=== PATIENT | female | born 1995 | race Two or more races ===

== ENCOUNTER 2024-01-27 00:03 | Emergency (ER) | payer MEDICAID, SELFPAY ==
[2024-01-27 00:03] VITALS: BP 116/78; PULSE 80; RESP 16; TEMP 36.7; O2SAT 99
[2024-01-27 00:04] VITALS: BMI 31.0
[2024-01-27 00:31] VITALS: PULSE 85; RESP 19; O2SAT 98
[2024-01-27 00:42] VITALS: BP 116/84; PULSE 75; RESP 16; O2SAT 99
--- NOTE | 2024-01-27 00:48 | PD.EDCHEST ---
ED Chest Pain RME/HPI General Chief Complaint: Chest Pain Stated Complaint: CHEST PAIN Time Seen by Provider: 01/27/24 00:49 Arrival date/time: 01/27/24 00:03 RME / HPI RME / HPI narrative: Dr. Sevilla's Main ED Evaluation: 28yo female A1 BIBA from home presents to the ED for a chief complaint of chest pressure x 2300. Patient states she was laying in bed awake when she developed sudden chest pressure, initially rating the pain a 9 out of 10 in severity. She reports having associated shortness of breath. She denies any cough, hemoptysis, vomiting, sweating, fever, chills, abdominal pain, UTI symptoms, blood clots, leg pain, headache or any other associated symptoms. Denies any tobacco, alcohol or illicit drug use. No known allergies. Patient endorses having a history of connective tissue disorder/lupus. She has not taken her medications for that disorder since she was . She had a miscarriage on 01/09/24. She is not breast-feeding. Denies any previous c-sections. PCP: [facility] Related Data Home Medications ?Medication ?Instructions ?Recorded ?Confirmed prenat.vits,meche,[id number]-aeske 1 tab PO QDAY 01/23/23 01/23/23 Allergies Allergy/AdvReac Type Severity Reaction Status Date / Time No Known Allergies Allergy Verified 01/23/23 19:18 Review of Systems Review of Systems Systems Reviewed: All systems reviewed, normal except as documented Narrative Review of Systems: Gen: No fever, no chills, no weight loss EYES: No discharge, no visual changes, no pain HEENT: No ear pain, no congestion, no sore throat PULM: + shortness of breath, no cough, no congestion CV: + chest pain, no dyspnea on exertion, no palpitations GI: No nausea, no vomiting, no diarrhea, no pain, no constipation : No frequency, no urgency, no dysuria Musc/skel: No joint pain, no back pain Skin: No rash. Warm and dry. Psyc: No hallucinations, no depression Heme/Lymph: No easy bleeding or bruising tendencies Neuro: No weakness, no headache Past Medical History Past Medical History NEUROLOGIC: Negative Neurological Disorders or Seizures CARDIAC: Negative Cardiac Disorders or Congestive Heart Failure RESPIRATORY: Negative Chronic Obstructive Pulmonary Disease (COPD) or Asthma GASTROINTESTINAL: Negative Gastrointestinal Disorders GENITOURINARY: Negative Genitourinary Disorders or Renal Disease MUSCULOSKELETAL: Positive Musculoskeletal Disorders ENDOCRINE: Negative Endocrine Disorders, Diabetes Mellitus Type 1 or Diabetes Mellitus Type 2 HEMATOLOGIC: Negative Blood Disorders, Anemia or Sickle Cell Disease PSYCHO/SOCIAL: Positive Depression and Anxiety OTHER HISTORY: Positive Autoimmune Disease; Negative Blood Transfusions Family History FAMILY HISTORY: Positive Family Cardiac Disorders and Family Cancer; Negative Family Psychiatric Problems, Family Respiratory Disorders, Family Gastrointestinal Problems, Family Surgery or Family Anesthesia Reaction Surgical History SURGICAL: Negative Section Social History SMOKING STATUS: Never smoker SUBSTANCE USE: does not use ED Exam Narrative Physical exam: GEN. APPEARANCE: Patient is alert awake oriented x3 under no distress, laying down comfortably at 30-45?; does not look ill/ toxic. Patient has good eye contact. Patient is cooperative. VITALS: All vitals were reviewed and the pulse ox is 99% on room air, which is normal according to my interpretation. HEENT: Normocephalic, atraumatic and nontender. Pupils are equal and reactive to light and accommodation. Oral mucosa are moist. NECK: Supple, nontender, no meningismus, no JVD. CHEST: Nontender on palpation, no deformity and no crepitus. CARDIOVASCULAR: Heart regular rhythm no murmur or gallop rub or extra beats; not tachycardic. LUNGS: Clear to auscultation bilaterally with symmetrical chest rise. No laboring tachypnea or wheezing. No intercostal subcostal retraction. No rales and no rhonchi. ABDOMEN: Soft, flat, nontender at all, no guarding or rebound tenderness. There are no abnormal masses palpated. No pulsatile masses or bruits. Active and normal bowel sounds. GENITALIA: Not examined. RECTAL EXAM: Not done. EXTREMITIES: Nontender. No edema. No cyanosis. Patient is able to move all 4 extremities well. SKIN: Warm and dry, no rashes noted. MUSCULOSKELETAL: No lumbar or midline bony tenderness. There is no CVA tenderness. No paraspinal muscle spasm or tenderness. NEURO: Cranial nerves II through XII grossly intact. There is no focalization. GCS is 15. PSYCHIATRIC: Patient is in normal mood and affect, cooperative. LYMPHATICS: No major lymphadenopathy noted. Course Course Course Narrative: CXR is ordered for determining the etiology of chest pain. Quality Measures none Orders Category Date Time Status EKG (ED ONLY) *Do not use* NOW Care 01/27/24 00:39 Completed EKG (ED Only) Stat Exams 01/27/24 00:39 Ordered XR chest 1V portable Stat Exams 01/27/24 01:07 Taken B-Type Natriuretic Peptide Stat Lab 01/27/24 01:23 Completed CBC Stat Lab 01/27/24 01:23 Completed Comprehensive Metabolic Panel Stat Lab 01/27/24 01:23 Completed D-Dimer Stat Lab 01/27/24 01:23 Completed Troponin I Stat Lab 01/27/24 01:23 Completed Vital Signs Vital signs: Vital Signs Temperature 98.1 F 01/27/24 00:03 Pulse Rate 80 01/27/24 00:03 Respiratory Rate 16 01/27/24 00:03 Blood Pressure 116/78 01/27/24 00:03 Pulse Oximetry (%) 99 01/27/24 00:03 Oxygen Delivery Method Room Air 01/27/24 00:03 Procedures -ED EKG Interpretation #1: Date of EK01/27/24 Rate: 71 Interpretation: Interpreted by me EKG Impression: Normal sinus rhythm, No acute ST-T changes, No ectopy, No ischemic changes, Normal QRS, Normal intervals and Normal axis Chest Pain MDM Narrative MDM Narrative:: Scribe Attestation: 01/27/24 Hallie Dumas am scribing for and in the presence of Dr. Sevilla. Patient was brought in by ambulance from home due to chest pressure since 11 PM tonight. Patient called 911 because she started experiencing chest pressure at 11 PM while she was awake in bed at home. She was not upset and there was no problems at the time she was just taking care of her 8-month-old baby. She got short of breath but no coughing or hemoptysis. She denies any headache or nausea vomiting or sweating or fever chills. She denies any abdominal pain or UTI symptoms. She denies any leg swelling or leg pain. She denies any loss of consciousness. Patient had a miscarriage on 01/09/2024 and she is 6 para 5; she has 5 children at home and no . 3 years ago she had a similar episode of chest pressure and they told her that she had lupus and connective tissue disease. She never had DVTs in the past. Patient does not look ill or toxic and she is hemodynamically stable. She is not tachycardic nor tachypneic and she is satting at 99% on room air. I will get a basic cardiac workup and a D-dimer on her. At 2:45 AM, all her lab work came back negative including her D-dimer. Patient will be discharged home. Provider Notation: Although this document has been carefully reviewed, there may still be some phonetic and other typographical errors. These errors are purely grammatical due to imperfections in the software program and should not be construed in any way to compromise the substance of the patient's medical care during this visit. Patient data External records reviewed:: [facility] previous records (Per chart review, patient was seen here on 01/07/24 for a threatened .) Clinical information provided by:: patient Social determinants that could affect healthcare access:: none Patient has the following chronic illnesses:: none How is presenting disease/condition affected by chronic disease/condition?: no chronic disease Evaluation data The following diagnostics were reviewed and interpreted by me:: lab results and EKG tracing(s) Lab and/or radiology exams considered but not ordered:: none Interpretation Summary: See above under MDM narrative. Medications / Prescriptions Medications or Prescriptions considered but not ordered:: none Medication administrations:: See above, if any Consultations Consultation(s) initiated? (list below): No Diagnosis Chest Pain Differential Diagnosis: other (CAD, PE, pneumonia, CHF) Most likely diagnosis given after review of the tests above:: see below Admission Indicated Admission indicated?: not indicated Admission Request Was there a request for admission?: No Disposition Plan Disposition Plan: Discharge Discharge Attestation Discharge Attestation: The patient and all family members were given an opportunity to ask questions and understood the discharge instructions. Discharge instructions specifically effects, indications for sooner follow up or return to the emergency department, and the expected course of current diagnosis. Patient condition: Stable Discharge Plan Plan Patient Disposition: HOME (Self Care) Prescriptions/Referrals Prescriptions/Med Rec: No Action Vitamin Tablet 1 tab PO QDAY Referrals: Olvin Gan PA-C [Primary Care Provider] - 01/30/24 10:00 am Problem List Clinical Impression: Chest pain, non-cardiac Patient/Caregiver Discharge Instructions Education Materials: ED Chest Pain, Noncardiac Additional Instructions: Follow-up with your clinic on Tuesday for recheck or return here if worse. Print Language: [place] Stand Alone Forms: [employer]anna Award Info., Patient Portal Info Letter
--- NOTE | 2024-01-27 00:51 | PC.NURSE ---
Dr. Sevilla at the bedside.
--- NOTE | 2024-01-27 01:07 | XR_ITS ---
Examination: AP chest single view Technique one AP portable upright chest single view Exam date and time: January 27, 2024 0118 hours INDICATION: Shortness of breath chest pain today FINDINGS: Normal heart size Lungs are clear. The osseous structures are intact IMPRESSION: No active disease
[2024-01-27 01:33] LABS: Basophils % (Auto) 0 % (0-2.5); Eosinophils # (Auto) 0.1 Thou/mm3 (0.0-0.5); Eosinophils % (Auto) 1 % (0-10); Hematocrit 33.8 % (36.0-46.0); Hemoglobin 11.2 g/dL (12.0-16.0); Immature Granulocytes % (Auto) 0 % (0-0); Immature Granulocytes Auto 0.01 Thou/mm3 (0.00-0.00); Lymphocytes # (Auto) 2.6 Thou/mm3 (1.0-4.8); Lymphocytes % (Auto) 32 % (10-50); Mean Corpuscular HGB Conc 33.1 g/dl (31.0-37.0); Mean Corpuscular Hemoglobin 27.2 pg (25.0-35.0); Mean Corpuscular Volume 82 fL (80-100); Monocytes # (Auto) 0.5 Thou/mm3 (0.0-0.8); Monocytes % (Auto) 6 % (0-12); Neutrophils # (Auto) 4.8 Thou/mm3 (1.8-7.7); Neutrophils % (Auto) 60 % (37-80); Nucleated Red Blood Cell % 0 /100 WBC (0); Platelet Count 348 Thou/mm3 (140-440); RDW Standard Deviation 39.6 fL (36.4-46.3); Red Blood Count 4.12 Miln/mm3 (4.00-5.20)
[2024-01-27 01:34] VITALS: BP 115/81; PULSE 77; RESP 16; O2SAT 100
[2024-01-27 01:54] LABS: B-Type Natriuretic Peptide 25 pg/mL (0-100)
[2024-01-27 01:56] LABS: Alanine Aminotransferase 34 U/L (10-49); Albumin, Serum 4.3 gm/dL (3.5-5.0); Albumin/Globulin Ratio 1.6 (1.2-2.2); Alkaline Phosphatase 86 U/L (46-116); Anion Gap 7 (7-16); Aspartate Amino Transferase 16 U/L (0-34); BUN/Creatinine Ratio 11 Ratio (12-20); Bilirubin,Total 0.2 mg/dL (0.3-1.2); Blood Urea Nitrogen 8 mg/dL (9-23); Calcium 9.4 mg/dL (8.3-10.6); Calcium (Corrected) 9.4 mg/dL (8.5-10.1); Carbon Dioxide 24.9 mMol/L (20.0-31.0); Chloride 108 mMol/L (98-107); Creatinine (Component) 0.7 mg/dL (0.6-1.3); Estimated Creatinine Clearance 137.7 mL/min (>60); Globulin 2.7 gm/dL (2.3-3.5); Glucose 108 mg/dL (74-106); Osmolality,Calculated 278 (275-295); Potassium 3.8 mMol/L (3.4-5.1); Sodium 140 mMol/L (136-145); Troponin I < 0.002 ng/mL (0.0-0.045); eGFR > 60 See Note
[2024-01-27 02:03] LABS: D-Dimer < 250 ng/mL (<600)
[2024-01-27 02:51] VITALS: BP 112/74; PULSE 75; RESP 19; TEMP 36.7; O2SAT 99
== END 2024-01-27 02:51 | disposition home or self-care (01) ==
PROVIDERS: Emergency Provider Emergency Medicine; PCP Physician Assistant
DX: R07.89 Other chest pain (principal); R06.02 Shortness of breath
CPT/HCPCS: 36415; 71045; 80053; 83880; 84484; 85025; 85379; 93005; 99283

== ENCOUNTER 2024-10-29 00:14 | Observation (INO) | payer MEDICAID, SELFPAY ==
[2024-10-29] VITALS (43 sets, daily range): BP systolic 100–129; BP diastolic 58–85; PULSE 84–131; RESP 18–99; TEMP 37.1; O2SAT 85–100; BMI 31.8
--- NOTE | 2024-10-29 00:47 | XR_ITS ---
Examination: Complete OB ultrasound greater than 14 weeks Date and time of exam: October 29, 2024, 0223 hours INDICATIONS: Patient fell 4 hours ago with injury to the pelvis followed by pelvic contractions. Findings: Viable intrauterine single fetus with single amniotic sac presentation cephalic Cardiac motion 1 8 BPM Placenta posterior 3 no abruption Umbilical cord insertion seen Amniotic fluid index 9.0 cm spine maternal left Cervix 3.1 cm Ovaries obscured by bowel gas. Composite estimated gestational age based on BPD, head circumference, abdominal circumference, femur length is 33 weeks 0 days Estimated weight 2059 g. Survey of intracranial anatomy, spinal anatomy, abdominal anatomy, four-chamber heart performed with no abnormalities identified. Impression: Viable intrauterine gestation in cephalic presentation.
[2024-10-29] MEDS: RINGERS LACTATED 1000 ML 1,000 ML 999 ML IV (01:30)
[2024-10-29 01:41] LABS: Amphetamine/Metham Scrn,Ur OB Negative (Negative); Benzoylecgonine Screen, Ur OB Negative (Negative); Opiate Screen,Urine OB Negative (Negative); THC Screen,Urine OB Negative (Negative)
[2024-10-29] MEDS: TERBUTALINE SULF INJ 1 MG/ML VIAL 0.25 MG SC (01:52)
[2024-10-29] MEDS: ONDANSETRON INJ 2 MG/ML INJ 2 ML 4 MG IVP (02:47)
--- NOTE | 2024-10-29 03:32 | PRELIM_ITS ---
Obstetric ultrasound. October 29, 2024 0223 hours Clinical history: r/o placental abruption Comparison: No prior study is available for comparison. Findings: There is a gravid uterus with a live fetus in cephalic presentation of mean gestational age 33 weeks and 0 days (by biometry). cardiac activity is present at a heart rate of 158 beats per minute. The placenta is posterior in location, maturity grade III. There is no evidence of placenta previa or retroplacental hemorrhage. Amniotic fluid is adequate (YEVGENIY = 9.0 cm). Estimated weight is 2059.0 grams+/- 305 grams. Estimated due date by ultrasound is 12/17/2024. The internal cervical os is closed and the cervical length is 3.1 cm. Bilateral ovaries are not visualized. Impression: Gravid uterus with a single live fetus in cephalic presentation of mean gestational age 33 weeks 0 days. No definite evidence of placental abruption or retroplacental hemorrhage. Report Electronically Signed By: Chau Contreras 10/29/2024 3:31:05 AM [EST]
== END 2024-10-29 03:57 | disposition home or self-care (01) ==
PROVIDERS: Admitting Provider Obstetrics & Gynecology; Visit Provider Obstetrics & Gynecology
DX: Z34.83 Encounter for supervision of other normal pregnancy, third trimester (principal); Z3A.34 34 weeks gestation of pregnancy
CPT/HCPCS: 59025; 59899; 76805; 80307; 96372; 96374; J2405; J3105; J7120

== ENCOUNTER 2024-10-31 10:04 | Outpatient (AMB) | payer MEDICAID, SELFPAY ==
--- NOTE | 2024-10-31 10:17 | OBCLNT_ITS ---
Vital Signs 10/31/24 10:18 Height 1.7 m Height Method Measured Weight 91.285 kg Weight Measurement Method Standing Scale BMI 31.5 BP 117/79 Blood Pressure Source Automatic Cuff Blood Pressure Location Right Upper Arm Position Sitting Respiration 17 Pulse 90 Pulse Source Monitor Temp 97.7 F Temp Source Temporal Artery Scan Pulse Oximetry (%) 98 Oxygen Delivery Method Room Air Allergies/Home Meds Allergies & Medications Allergies No Known Allergies Allergy (Verified 10/31/24 10:18) Medication Reconciliation prenat.vits,meche,ovm-xwkm-ckmsx 1 tab PO QDAY 01/23/23 [History Confirmed ] ferrous sulfate 325 mg (65 mg iron) tablet 325 mg PO BID #60 tabs 10/31/24 [Rx] fluconazole 150 mg tablet 150 mg PO QDAY 3 days #3 tabs 10/31/24 [Rx] metronidazole 500 mg tablet 500 mg PO BID 7 days #14 tabs 10/31/24 [Rx] vitamin-ferrous fumarate 28 mg iron-folic acid 800 mcg tablet ( Vitamins with Minerals) 1 tab PO QDAY #60 tabs 10/31/24 [Rx] Intake Visit Data Collection New Patient or Established: Established Patient (seen at [facility] within 3 years) Reason for Visit:: OBI TRANSFER Consent obtained for Telemed Visit: No Seen by Clinical Staff ONLY (RN/MA): No Playground Attendant Required: No Do You Feel Safe at Home: Yes Authorities Contacted: N/A PCP or OBGYN visit in last 3 months: Yes Date of Last PCP or OBGYN visit: 10/29/24 Hx Now: Yes Are you currently on any form of Control: No Last menstrual period: 03/02/24 Pain Present Currently: No Pain Scale Used: Ferreira-Phillips/Numerical Pain scale:: 0 Smoking Status Smoking Status: Never smoker Questionnaires Covid-19 Vaccine Questionnaire Has patient been vacinated for Covid-19 Have you been vacinated for Covid-19: Yes PHQ-9 PHQ-2 Over the last 2 weeks, how often have you been bothered by any of the following problems? 1. Little interest or pleasure in doing things: not at all 2. Feeling down, depressed, or hopeless: not at all Total score: 0 PHQ-9 3. Trouble falling or staying asleep, or sleeping too much: Not at all 4. Feeling tired or having little energy: Not at all 5. Poor appetite or overeating: Not at all 6. Feeling bad about yourself - or that you are a failure or have let yourself or your family down: Not at all 7. Trouble concentrating on things, such as reading the newspaper or watching television: Not at all 8. Moving or speaking so slowly that other people could have noticed? - Or the opposite - being so fidgety or restless that you have been moving around a lot more than usual: not at all 9. Thoughts that you would be better off or of hurting yourself in some way: Not at all Total score: 0 If you checked off any problems, how difficult have these problems made it for you to do your work, take care of things at home, or get along with other people?: not difficult at all Source: Developed by Drs. Maurisio Carreno, Merissa Renee, Rubens Sauer and colleagues, with an educational david from [employer]. Social History Living Situation History Marital Status: Lives With: Family Housing: House Tobacco History Smoking Status: Never smoker Alcohol History Alcohol Intake: Never Domestic Abuse History Do You Feel Safe at Home: Yes History of Present Illness HPI Narrative 28-year-old 7 para 5 for OBI with records. Patient has been followed at [facility] for the first part of her care. Last. Was March 02, 2025. This gives an EDC of December 07, 2024. Patient has poor dates. Her first ultrasound was done on April 26, 2024. Patient patient was 6 weeks at that time and that changed due date to December 19, 2024. Patient was seen by maternal- medicine for lupus and that ultrasound was October 29, 2024. Baby boy was measuring 33 weeks at that time and that confirmed dates of December 19, 2024. So patient has a history of lupus. She is not being seen by any family practice provider at this time or being treated. The has been uneventful. Labs or markers for lupus were not drawn with this in the beginning. Patient reports good movement. Denies leaking or bleeding. Patient is having contractions and she was seen at [facility] in October treated with IV hydration and steroids for early contractions. Patient is A+, antibody screen negative, RPR nonreactive, rubella immune, hepatitis B negative, hep C negative, HIV negative, she was screened for varicella and those were negative. She had denied negative drug screen. 1 hour was normal. NIPT AFP and carrier screens were normal. 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 Patient was seen at [facility] in [place] for several visits. Poor dates last. March 02, 2025. And by LMP this gave her due date 12/07/2024. Patient's first ultrasound was May 04, 2024. She was 6 weeks 1 and this corrected EDC to December 19, 2024. Patient has a history of lupus with the . She also sees a provider for her lupus at [facility]. Lupus workup was not done with the labs were not done as well. Patient did have a visit at [facility]. She had an ultrasound on October 29 she was 33 weeks and this confirmed dates. The sono showed normal anatomy. And she was scheduled for a follow-up in 5 weeks. Schedule weekly NST BPP. Remind patient to keep her follow-up appointment at [facility]. Discussed labor precautions and kick count. New swab was done today and I gave her prescription for metronidazole 500 twice daily and Diflucan 150 daily x 3 for a yeast infection she had white curdy discharge. Discussed labor precautions and increase fluids and rest. Menstrual History Menstrual reliability: definite Flow: normal Menstrual regularity: regular Monthly: Yes Age at menarche: 10 On control pills at conception: No Date of positive home test: 03/07/24 OB History : 7 Para: 5 Hx # Pregnancies: 0 Hx Total # of Abortions (Spontaneous & Elective): 1 # of Living Children: 5 Delivery History 1st : Child's name: OTF date: 12/05/11 sex: female Gestational age at delivery (weeks): 40 Delivery type: vaginal weight (lbs): 2267.962 g weight (oz): 311.845 g History of depression before or after : No 2nd : Child's name: TEJAS date: 11/19/13 sex: male Gestational age at delivery (weeks): 39 Delivery type: vaginal weight (lbs): 3175.147 g weight (oz): 170.097 g History of depression before or after : No 3rd : Child's name: ADILENE date: 11/21/16 sex: female Gestational age at delivery (weeks): 40 Delivery type: vaginal weight (lbs): 3175.147 g weight (oz): 198.447 g History of depression before or after : No 4th : Child's name: SHIRLEY date: 02/09/20 sex: male Gestational age at delivery (weeks): 39 Delivery type: vaginal weight (lbs): 3628.739 g History of depression before or after : No 5th : Child's name: DARNELL date: 05/19/23 sex: male Gestational age at delivery (weeks): 39 Delivery type: vaginal weight (lbs): 3628.739 g History of depression before or after : No Infection History & Risk Evaluation History of STDs: none HIV risk evaluation: low risk Hepatitis B risk evaluation: low risk Patient or partner has history of Genital Herpes: No Genetic Screening & History Genetic Screening/Teratology Counseling - Includes patient, baby's father, or anyone in either family with: 1. Patient's age 35 years or older as of estimated date of delivery: No 2. Thalassemia (Angolan, Mohawk, Mediterranean, or Background); MCV less than 80: No 3. Neural Tube Defect (Meningomyelocele, Spina Bifida, or Anencephaly): No 4. Congenital Heart Defect: No 5. Down Syndrome: No 6. Nacho-Sachs (Ashkenazi Protestant, Cajun, Tamazight Lipscomb): No 7. Casper Disease (Ashkenazi Protestant): No 8. Familial Dysautonomia (Ashkenazi Protestant): No 9. Sickle Cell Disease or Trait (): No 10. Hemophilia or other blood disorders: No 11. Muscular Dystrophy: No 12. Cystic Fibrosis: No 13. [place]'s Chorea: No 14. Mental Retardation/Autism: No 15. Other inherited genetic or chromosomal disorder: No 16. Maternal Metabolic Disorder (EG,TYPE 1 Diabetes, PKU): No 17. Patient or baby's father had a child with defects not listed above: No 18. Recurrent loss or a stillbirth: No 19. Medications (including supplements, vitamins, herbs or otc drugs)/illicit/recreational drugs/alcohol since last menstrual period: No 20. Any other: No Infection History 1. Live with someone with TB or exposed to TB: No 2. Rash or viral illness since last menstrual period: No 3. Hepatitis B,C: No Other (see comments) Source: [employer] Review of Systems Review of Systems Systems Reviewed: All systems reviewed, normal except as documented Exam General Limitations: no limitations General Appearance: alert, in no apparent distress, comfortable, cooperative, healthy appearing, well developed and well groomed Head Head exam: atraumatic, normocephalic and normal inspection Chest Chest inspection: Present normal inspection and symmetric chest wall rise Resp Respiratory exam: Present normal lung sounds bilaterally Card Cardiovascular exam: Present regular rate, normal rhythm and normal heart sounds Abdominal Abdominal exam: Present soft and normal bowel sounds Psych Psychiatric exam: Present normal affect and normal mood Office Procedures OB Clinic LOC & Office Proc's Nursing/Assessment Patient Status: Established Patient OB Clinic Nursing Assessment: Medication Reconciliation, Update PMH in EMR and Vital Signs OB Clinic Coordination of Care: Complex Care and Chronic Disease 1-5, Consent,records obtained, informed consent and Education Simp Pt/Fam Special Needs: Heart tones Established Patient Charge Established Patient Point Assignment: 105 Established Patient Point Charge: EP Level 3 (80-115) Assessment & Plan Diagnosis / Problem List (1) Encounter for supervision of high risk in third trimester, antepartum: Status: Acute (2) Lupus anticoagulant affecting in third trimester, antepartum: Status: Acute (3) Grand multiparity with current : Status: Acute Qualifiers: Trimester: third trimester Qualified Code(s): O09.43 - Supervision of with grand multiparity, third trimester (4) Vaginitis: Status: Acute Qualifiers: Chronicity: acute Qualified Code(s): N76.0 - Acute vaginitis Plan New swab today. Diflucan 150 p.o. daily x 3. Metronidazole 500 twice daily x 7. Comfort measures for vaginitis. Patient advised to keep her follow-up appointment for growth scan at [facility]. Discussed labor precautions and increase fluids. We torri SMA today. And return in 2 weeks OB check and GBS Additional Plan Follow Up: 1 Week (OBC/GBS)
[2024-10-31 10:18] VITALS: BP 117/79; PULSE 90; RESP 17; TEMP 36.5; O2SAT 98; BMI 31.5
== END 2024-10-31 10:52 | disposition home or self-care (01) ==
LOC: HODSOBC 10:04
PROVIDERS: Supervising Provider Advanced Practice Midwife; Visit Provider Advanced Practice Midwife
DX: O09.43 Supervision of pregnancy with grand multiparity, third trimester (principal); O09.893 Supervision of other high risk pregnancies, third trimester; O99.113 Other diseases of the blood and blood-forming organs and certain disorders involving the immune mechanism complicating pregnancy, third trimester; D68.62 Lupus anticoagulant syndrome; O98.813 Other maternal infectious and parasitic diseases complicating pregnancy, third trimester; B37.31 Acute candidiasis of vulva and vagina; Z3A.33 33 weeks gestation of pregnancy
CPT/HCPCS: 99213; G0463

== ENCOUNTER 2024-11-08 09:53 | Outpatient (AMB) | payer MEDICAID, SELFPAY ==
--- NOTE | 2024-11-08 10:14 | AMB.OBVISIT ---
Vital Signs 11/08/24 10:15 Height 1.7 m Height Method Stated Weight 92.136 kg Weight Measurement Method Standing Scale BMI 31.8 BP 101/69 Blood Pressure Source Automatic Cuff Blood Pressure Location Right Upper Arm Position Sitting Respiration 17 Pulse 85 Pulse Source Monitor Temp 97.5 F Temp Source Temporal Artery Scan Pulse Oximetry (%) 98 Oxygen Delivery Method Room Air Allergies/Home Meds Allergies & Medications Allergies No Known Allergies Allergy (Verified 11/08/24 10:16) Medication Reconciliation prenat.vits,meche,bod-jida-rhrem 1 tab PO QDAY 01/23/23 [History Confirmed 11/08/24] ferrous sulfate 325 mg (65 mg iron) tablet 325 mg PO BID #60 tabs 10/31/24 [Rx Confirmed 11/08/24] vitamin-ferrous fumarate 28 mg iron-folic acid 800 mcg tablet ( Vitamins with Minerals) 1 tab PO QDAY #60 tabs 10/31/24 [Rx Confirmed 11/08/24] amoxicillin 500 mg capsule 500 mg PO BID #14 caps 11/08/24 [Rx] fluconazole 150 mg tablet 150 mg PO QDAY 3 days #3 tabs 11/08/24 [Rx] Intake Visit Data Collection New Patient or Established: Established Patient (seen at [facility] within 3 years) Reason for Visit:: OBC Seen by Clinical Staff ONLY (RN/MA): No Purchasing Specialist Required: No Do You Feel Safe at Home: Yes Authorities Contacted: N/A PCP or OBGYN visit in last 3 months: Yes Date of Last PCP or OBGYN visit: 10/31/24 Hx Now: Yes Are you currently on any form of Control: No Pain Present Currently: Yes Pain Location: Abdomen Pain Scale Used: Ferreira-Phillips/Numerical Pain scale:: 4 Smoking Status Smoking Status: Never smoker Questionnaires Covid-19 Vaccine Questionnaire Has patient been vacinated for Covid-19 Have you been vacinated for Covid-19: Yes PHQ-9 PHQ-2 Over the last 2 weeks, how often have you been bothered by any of the following problems? 1. Little interest or pleasure in doing things: not at all 2. Feeling down, depressed, or hopeless: not at all Total score: 0 PHQ-9 3. Trouble falling or staying asleep, or sleeping too much: Not at all 4. Feeling tired or having little energy: Not at all 5. Poor appetite or overeating: Not at all 6. Feeling bad about yourself - or that you are a failure or have let yourself or your family down: Not at all 7. Trouble concentrating on things, such as reading the newspaper or watching television: Not at all 8. Moving or speaking so slowly that other people could have noticed? - Or the opposite - being so fidgety or restless that you have been moving around a lot more than usual: not at all 9. Thoughts that you would be better off or of hurting yourself in some way: Not at all Total score: 0 If you checked off any problems, how difficult have these problems made it for you to do your work, take care of things at home, or get along with other people?: not difficult at all Source: Developed by Drs. Maurisio Carreno, Merissa Renee, Rubens Sauer and colleagues, with an educational david from [email or web address]. 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 Patient was seen at [facility] in [place] for several visits. Poor dates last. March 02, 2025. And by LMP this gave her due date 12/07/2024. Patient's first ultrasound was May 04, 2024. She was 6 weeks 1 and this corrected EDC to December 19, 2024. Patient has a history of lupus with the . She also sees a provider for her lupus at [facility]. Lupus workup was not done with the labs were not done as well. Patient did have a visit at [facility]. She had an ultrasound on October 29 she was 33 weeks and this confirmed dates. The sono showed normal anatomy. And she was scheduled for a follow-up in 5 weeks. Schedule weekly NST BPP. Remind patient to keep her follow-up appointment at [facility]. Discussed labor precautions and kick count. New swab was done today and I gave her prescription for metronidazole 500 twice daily and Diflucan 150 daily x 3 for a yeast infection she had white curdy discharge. Discussed labor precautions and increase fluids and rest. 11/08/24 <del>?</del> 34w 1d 92.136 kg 101/69 occasional cephalic 33 135 active Reports good movement. Complains with occasional contraction. Denies leaking or bleeding. Discharge and itching is improved. Patient did have positive yeast on the new swab. Also complaining of cough cold sore throat runny nose. States everybody in the family has a cold., covid- Amoxicillin 500 p.o. twice daily x 7 days. I gave Diflucan 151 tab p.o. daily x 3 days. Discussed labor precautions and kick count. Increase fluids. Comfort measures for cough and cold. Patient is compliant with weekly NST BPP. Maternal- medicine appointment is November 19. GBS next visit. And I reviewed danger signs symptoms and ER precautions RODGER Calculator Estimated Delivery Date Method Current WG Current Estimate 12/19/24 Ultrasound #1 34w 1d Other Estimates 12/07/24 LMP (Certain) 35w 6d Notes Visit Date: 10/31/24 Last Updated by: Laurie Barrios, LINETTE [id number]. poor dates. LMP: 03/02/25. EDC: 12/07/24. 1st ob sono: 04/26/24. IUP: 6 week. CEDC: 12/19/24. MFM sono: 10/29/24: 33 weel. EDC: 12/17/24 OB panel: A_+> abs-, rpr;;nr, rub IMM< hbsag-, hiv-, HC-, gc/CT-, ut-, . nipt/afp-, 1 HR GTT- Office Procedures OB Clinic LOC & Office Proc's Nursing/Assessment Patient Status: Established Patient OB Clinic Nursing Assessment: Medication Reconciliation, Update PMH in EMR and Vital Signs OB Clinic Coordination of Care: Complex Care and Chronic Disease 1-5, Consent,records obtained, informed consent, Education Simp Pt/Fam, Results/Orders obtained and Staff clarify orders Special Needs: Heart tones Established Patient Charge Established Patient Point Assignment: 120 Established Patient Point Charge: EP Level 4 (120-155) Assessment & Plan Diagnosis / Problem List (1) Grand multiparity with current : Status: Acute Qualifiers: Trimester: third trimester Qualified Code(s): O09.43 - Supervision of with grand multiparity, third trimester (2) Vaginitis: Status: Acute Qualifiers: Chronicity: acute Qualified Code(s): N76.0 - Acute vaginitis (3) Encounter for supervision of high risk in third trimester, antepartum: Status: Acute Plan Diflucan 150 mg p.o. daily x 3. Amoxicillin 500 p.o. twice daily x 7 days. Discussed comfort measures for cough and cold discussed ER precautions and danger signs symptoms. Continue weekly NST BPP. Patient has a follow-up with [facility] November 19. Increase fluids. Return in a week for OB check and GBS Additional Plan Follow Up: 1 Week (obc)
[2024-11-08 10:15] VITALS: BP 101/69; PULSE 85; RESP 17; TEMP 36.4; O2SAT 98; BMI 31.8
== END 2024-11-08 10:50 | disposition home or self-care (01) ==
LOC: HODSOBC 09:53
PROVIDERS: Supervising Provider Advanced Practice Midwife; Visit Provider Advanced Practice Midwife
DX: O09.43 Supervision of pregnancy with grand multiparity, third trimester (principal); O09.893 Supervision of other high risk pregnancies, third trimester; O23.593 Infection of other part of genital tract in pregnancy, third trimester; N76.0 Acute vaginitis; J02.9 Acute pharyngitis, unspecified; Z3A.34 34 weeks gestation of pregnancy; O99.891 Other specified diseases and conditions complicating pregnancy; R05.9 Cough, unspecified; R09.89 Other specified symptoms and signs involving the circulatory and respiratory systems
CPT/HCPCS: 99214; G0463

== ENCOUNTER 2024-11-13 20:17 | Observation (INO) | payer MEDICAID, SELFPAY ==
[2024-11-13] VITALS (36 sets, daily range): BP systolic 92–110; BP diastolic 56–71; PULSE 66–102; RESP 19–100; TEMP 36.8–36.9; O2SAT 99–100; BMI 31.6
[2024-11-13] MEDS: RINGERS LACTATED 1000 ML 1,000 ML 999 ML IV (21:09)
--- NOTE | 2024-11-13 21:14 | XR_ITS ---
Examination: Transvaginal ultrasound of the pelvis, Limited Technique: Transvaginal sonographic images pelvis performed using herr scale imaging Exam date and time: November 13, 2024, 1116 hrs. Indications: Pelvic contractions today, unknown cervical length Findings: Cervix 3.1 cm closed Impression: Cervix 3.1 cm closed.
[2024-11-13] MEDS: ONDANSETRON INJ 2 MG/ML INJ 2 ML 4 MG IVP (21:21)
[2024-11-13] MEDS: ACETAMINOPHEN 325 MG TABLET 650 MG PO (21:45)
[2024-11-13 22:19] LABS: FFN Specimen Descripton Clr Colrless Aqueous; Fetal Fibronectin Negative (Negative)
[2024-11-13 22:33] LABS: Collection Type, Urine Clean Catch
[2024-11-13 22:51] LABS: Bilirubin,Urine Negative (Negative); Blood,Urine Negative (Negative); Clarity,Urine Turbid (Clear/Hazy); Color,Urine Yellow (Lt Yel-Yel); Glucose, Urine Negative (Negative); Ketones,Urine Negative (Negative); Leukocyte Esterase,Urine Negative (Negative); Nitrite,Urine Negative (Negative); PH,Urine 6.0 (5.0-7.0); Protein,Urine 1+ (Neg - Trace); RBC,Urine 1 /hpf (0-3); Specific Gravity,Urine 1.034 (1.001-1.035); Squamous Epithelial Cell,Urine 17 /hpf (0-5); Urobilinogen,Urine 3.0 mg/dL (0.0-1.0); WBC,Urine < 1 /hpf (0-5)
[2024-11-13] MEDS: RINGERS LACTATED 1000 ML 1,000 ML 125 ML IV (23:10)
[2024-11-14] VITALS (9 sets, daily range): BP systolic 83–101; BP diastolic 46–58; PULSE 66–83; RESP 16; TEMP 36.4–36.9
--- NOTE | 2024-11-14 06:48 | ESHP_ITS ---
Documentation for date of: 11/14/24 OB Labor/Induct. HPI History of Present Illness Chief complaint: Contractions, nausea and vomiting : 7 Para: 5 Term pregnancies: 5 pregnancies: 0 Living children: 5 History of Abortions: Spontaneous and Elective: 1 History of Vaginal deliveries: 6 History of sections: No History of : No Date of last menstrual period: 03/02/24 RODGER: 12/19/24 Gestational age based on last menstrual period: 36 History of present illness: 37-year-old 7 para 5 presented with contractions decreased movement nausea and vomiting that started at 9 PM. Patient denies any leakage of fluid or vaginal bleeding will proceed with the patient denies any diarrhea or any other GI complaints History of Present Adequate Care: No Past Medical History Surgical History SURGICAL: Negative Section Meds Home Medications and Allergies Home Medications ?Medication ?Instructions ?Recorded ?Confirmed ?Type prenat.vits,meche,bdh-xeyb-bwhug 1 tab PO QDAY 01/23/23 11/13/24 History Allergies Allergy/AdvReac Type Severity Reaction Status Date / Time No Known Allergies Allergy Verified 11/13/24 21:32 OB Exam Physical Exam Vital signs: Temp Pulse Resp BP Pulse Ox O2 Del Method 98.5 F 66 19 90/52 L 100 Room Air 11/14/24 01:30 11/14/24 01:27 11/13/24 20:25 11/14/24 01:27 11/13/24 23:08 11/13/24 20:17 Detailed Labor and Delivery Exam Dilation (cm): 1 Effacement (%): th Cervix position: mid Baseline heart rate: 145 monitor accelerations: 15x15 monitor decelerations: None OB Results Labs Labs: Urine 11/13/24 Range/Units 21:10 Urine Color Yellow (Lt Yel-Yel) Urine Clarity Turbid A (Clear/Hazy) Urine pH 6.0 (5.0-7.0) Ur Specific Calhoun 1.034 (1.001-1.035) Urine Protein 1+ A (Neg - Trace) Urine Glucose (UA) Negative (Negative) OB Assessment & Plan Assessment and Plan (1) Threatened labor: Status: Acute Assessment and plan: Admit to antepartum observation for IV fluids ultrasound labs and antiemetic treatment. Reassess at regular intervals and further intervention as needed (2) Vaginitis affecting in third trimester, antepartum: Status: Acute (3) Nausea & vomiting: Status: Inactive
[2024-11-14] MEDS: RINGERS LACTATED 1000 ML 1,000 ML 125 ML IV (07:40)
--- NOTE | 2024-11-14 10:00 | PD.LDPN ---
Documentation for date of: 11/14/24 OB Labor Progress Note Pain Control Comments: Patient is a 29-year-old -0-1-5 at 35 weeks admitted overnight for IV fluids. She had some nausea and vomiting. Patient was lena and was given oral [place] tocolytics. fibronectin was negative and her cervix was closed thick and high. This morning she is resting comfortably tolerating a sandwich and some Jell-O and oral fluids. She is not lena no vaginal bleeding no loss of fluids patient like to go home. She denies any fevers chills sick contacts no dysuria she denies any diarrhea or blood in her stools. Pelvic Exam Dilation (cm): 1 Effacement (%): th Amniotic membrane status: Intact Comments: Cervical exam on admission was 1 thick and high she was not examined today Contractions Monitor mode: External Contraction frequency: NONE Contraction intensity: Mild Status status: Category l Assessment and Plan Comments: patient is doing well. Discharged home in stable condition follow-up next week in clinic.
--- NOTE | 2024-11-14 10:04 | ESDS_ITS ---
DS: Providers Provider Date of admission: 11/13/24 20:17 Primary care physician: Physician No Primary/Family Admitting Provider: Laurie Barrios CNM Attending Provider on Admission: Abhay Estrada MD Attending Provider on DC: Elle Levi MD (OB Clinic) Discharging Provider: Elle Levi MD (OB Clinic) Anticipated date of discharge: 11/14/24 DS: Diagnosis Discharge Diagnosis (1) Grand multiparity with current : Status: Acute (2) Threatened labor: Status: Acute (3) Gastroenteritis: Status: Acute Assessment & Plan: Patient's status post IV fluids. No more contractions. Stable. No more vomiting. Discharged home in stable condition. Problem List Completed Was Problem List Reviewed/Reconciled?: Yes Summary/Hosp Course Brief History: 37-year-old 7 para 5 presented with contractions decreased movement nausea and vomiting that started at 9 PM. Patient denies any leakage of fluid or vaginal bleeding will proceed with the patient denies any diarrhea or any other GI complaints. The patient was admitted by Dr. Estrada on 11/13/2024 and had IV fluids overnight. She had some oral tocolytics for some contractions. fibronectin was negative cervical exam was 1 thick and high. The day after admission 11/14/2024 patient was tolerating a general diet voiding she denied any contractions loss of fluids or vaginal bleeding. She was discharged home the hospitalization day #1 in stable condition. Status at Discharge Cognitive/behavioral status at discharge: Patient is alert and oriented x 3 in no apparent distress Functional status at discharge: independent ambulation Overall status at discharge: patient is not back to baseline Time Spent with Patient Time attestation: Total time spent providing and/or coordinating discharge services: Time spent: Less than 30 minutes Specific discharge activities: Drink lots of fluids. Come back for any leaking of amniotic fluid or vaginal bleeding or regular strong uterine contractions. Follow-up in clinic in 1 week. Exam Vital Signs Temp Pulse Resp BP Pulse Ox O2 Del Method 97.6 F 83 16 101/58 L 100 Room Air 11/14/24 07:20 11/14/24 09:27 11/14/24 07:20 11/14/24 09:27 11/13/24 23:08 11/13/24 20:17 Narrative Exam Fundus firm nontender extremities show no significant edema or erythema Discharge Plan Plan Patient Disposition: HOME (Self Care) Patient condition on transfer: Stable Prescriptions/Referrals Prescriptions/Med Rec: No Action vit-iron fum-folic ac [ Vitamin with Minerals] 28 mg iron- 800 mcg tablet 1 tab PO QDAY Qty: 60 3RF ferrous sulfate 325 mg (65 mg iron) tablet 325 mg PO BID Qty: 60 2RF amoxicillin 500 mg capsule 500 mg PO BID Qty: 14 0RF Vitamin Tablet 1 tab PO QDAY Referrals: No Primary/Family,Physician [Primary Care Provider] Patient/Caregiver Discharge Instructions Discharge Activity: activity as tolerated Other Discharge Activity Instructions:: Drink lots of fluids. Other Discharge Diet Instructions: Clear liquid to general diet as tolerated. Education Materials: Kick Counts, Preg Eating Healthy, Antepartum Discharge Print Language: Barbadian Activity Restrictions/Additional Instructions: RETURN BACK TO TRIAGE WITH SIGNS AND SYMPTOMS OF LEAKING, VAGINAL BLEEDING, CONTRACTIONS AND OR DECREASED MOVEMENT. KEEP ALL APPOINTMENTS SCHEDULED. Stand Alone Forms: Vanna Award Info., Patient Portal Info Letter, Work/Release Restrictions Discharge Order Discharge Orders: Discharge (Routine); Ordered 11/14/24 Ordered By: Elle Levi (OB Clinic) Planned Discharge Date 11/14/24 (1) Grand multiparity with current Qualifiers: Trimester: third trimester Qualified Code(s): O09.43 - Supervision of with grand multiparity, third trimester (2) Threatened labor Qualifiers: Trimester: third trimester Qualified Code(s): O47.03 - False labor before 37 completed weeks of gestation, third trimester
[2024-11-14 11:08] LABS: Basophils # (Auto) 0.0 Thou/mm3 (0.0-0.2); Basophils % (Auto) 0 % (0-2.5); Eosinophils # (Auto) 0.1 Thou/mm3 (0.0-0.5); Eosinophils % (Auto) 1 % (0-10); Hematocrit 28.2 % (36.0-46.0); Hemoglobin 9.1 g/dL (12.0-16.0); Immature Granulocytes Auto 0.03 Thou/mm3 (0.00-0.00); Lymphocytes # (Auto) 2.0 Thou/mm3 (1.0-4.8); Lymphocytes % (Auto) 28 % (10-50); Mean Corpuscular HGB Conc 32.3 g/dl (31.0-37.0); Mean Corpuscular Hemoglobin 25.7 pg (25.0-35.0); Mean Corpuscular Volume 80 fL (80-100); Monocytes # (Auto) 0.5 Thou/mm3 (0.0-0.8); Monocytes % (Auto) 6 % (0-12); Neutrophils # (Auto) 4.6 Thou/mm3 (1.8-7.7); Neutrophils % (Auto) 64 % (37-80); Nucleated Red Blood Cell # 0.00 Thou/mm3 (0.00-0.00); Nucleated Red Blood Cell % 0 /100 WBC (0); Platelet Count 304 Thou/mm3 (140-440); RDW Standard Deviation 43.0 fL (36.4-46.3); Red Blood Count 3.54 Miln/mm3 (4.00-5.20); White Blood Count 7.2 Thou/mm3 (3.6-11.0)
[2024-11-14 11:38] LABS: Alanine Aminotransferase < 7 U/L (10-49); Albumin, Serum 3.2 gm/dL (3.5-5.0); Anion Gap 9 (7-16); Aspartate Amino Transferase < 10 U/L (0-34); BUN/Creatinine Ratio 10 Ratio (12-20); Bilirubin,Total 0.5 mg/dL (0.3-1.2); Blood Urea Nitrogen < 5 mg/dL (9-23); Calcium 8.4 mg/dL (8.3-10.6); Carbon Dioxide 23.4 mMol/L (20.0-31.0); Chloride 106 mMol/L (98-107); Creatinine (Component) 0.5 mg/dL (0.6-1.3); Estimated Creatinine Clearance 193.0 mL/min (>60); Glucose 101 mg/dL (74-106); Osmolality,Calculated 272 (275-295); Potassium 3.4 mMol/L (3.4-5.1); Sodium 138 mMol/L (136-145); Total Protein 5.4 gm/dL (5.7-8.2); eGFR > 60 See Note
[2024-11-14 11:39] LABS: Albumin/Globulin Ratio 1.5 (1.2-2.2); Alkaline Phosphatase 136 U/L (46-116); Calcium (Corrected) 9.0 mg/dL (8.5-10.1); Globulin 2.2 gm/dL (2.3-3.5)
== END 2024-11-14 14:30 | disposition home or self-care (01) ==
PROVIDERS: Obstetrics & Gynecology; Admitting Provider Advanced Practice Midwife; Visit Provider Obstetrics & Gynecology
DX: O47.03 False labor before 37 completed weeks of gestation, third trimester (principal); O36.8130 Decreased fetal movements, third trimester, not applicable or unspecified; Z3A.36 36 weeks gestation of pregnancy; O23.593 Infection of other part of genital tract in pregnancy, third trimester; O21.2 Late vomiting of pregnancy; O09.43 Supervision of pregnancy with grand multiparity, third trimester; O99.613 Diseases of the digestive system complicating pregnancy, third trimester; K52.9 Noninfective gastroenteritis and colitis, unspecified
CPT/HCPCS: 36415; 59899; 76830; 80053; 81001; 82731; 85025; 87086; 96361; 96374; J2405; J7120; A9270

== ENCOUNTER 2024-11-20 12:55 | Outpatient (AMB) | payer MEDICAID, SELFPAY ==
--- NOTE | 2024-11-20 13:08 | OBCLNT_ITS ---
Vital Signs 11/20/24 13:10 Height 1.7 m Height Method Stated Weight 92.079 kg Weight Measurement Method Standing Scale BMI 31.8 BP 108/71 Blood Pressure Source Automatic Cuff Blood Pressure Location Left Upper Arm Position Sitting Respiration 16 Pulse 76 Pulse Source Monitor Temp 97.2 F Temp Source Oral Pulse Oximetry (%) 98 Oxygen Delivery Method Room Air Allergies/Home Meds Allergies & Medications Allergies No Known Allergies Allergy (Verified 11/20/24 13:13) Medication Reconciliation prenat.vits,meche,sle-yvnx-gfhlb 1 tab PO QDAY 01/23/23 [History Confirmed 11/20/24] ferrous sulfate 325 mg (65 mg iron) tablet 325 mg PO BID #60 tabs 10/31/24 [Rx Confirmed 11/20/24] vitamin-ferrous fumarate 28 mg iron-folic acid 800 mcg tablet ( Vitamins with Minerals) 1 tab PO QDAY #60 tabs 10/31/24 [Rx Confirmed 11/20/24] amoxicillin 500 mg capsule 500 mg PO BID #14 caps 11/08/24 [Rx Confirmed 11/20/24] Intake Visit Data Collection New Patient or Established: Established Patient (seen at [facility] within 3 years) Reason for Visit:: OBC Seen by Clinical Staff ONLY (RN/MA): No 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 1. Little interest or pleasure in doing things: not at all 2. Feeling down, depressed, or hopeless: not at all Total score: 0 PHQ-9 3. Trouble falling or staying asleep, or sleeping too much: Not at all 4. Feeling tired or having little energy: Not at all 5. Poor appetite or overeating: Not at all 6. Feeling bad about yourself - or that you are a failure or have let yourself or your family down: Not at all 7. Trouble concentrating on things, such as reading the newspaper or watching television: Not at all 8. Moving or speaking so slowly that other people could have noticed? - Or the opposite - being so fidgety or restless that you have been moving around a lot more than usual: not at all 9. Thoughts that you would be better off or of hurting yourself in some way: Not at all Total score: 0 If you checked off any problems, how difficult have these problems made it for you to do your work, take care of things at home, or get along with other people?: not difficult at all Source: Developed by Drs. Maurisio Carreno, Merissa Renee, Rubens Sauer and colleagues, with an educational david from [employer]. 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 Patient was seen at [facility] in [place] for several visits. Poor dates last. March 02, 2025. And by LMP this gave her due date 12/07/2024. Patient's first ultrasound was May 04, 2024. She was 6 weeks 1 and this corrected EDC to December 19, 2024. Patient has a history of lupus with the . She also sees a provider for her lupus at [facility]. Lupus workup was not done with the labs were not done as well. Patient did have a visit at [facility]. She had an ultrasound on October 29 she was 33 weeks and this confirmed dates. The sono showed normal anatomy. And she was scheduled for a follow-up in 5 weeks. Schedule weekly NST BPP. Remind patient to keep her follow-up appointment at [facility]. Discussed labor precautions and kick count. New swab was done today and I gave her prescription for metronidazole 500 twice daily and Diflucan 150 daily x 3 for a yeast infection she had white curdy discharge. Discussed labor precautions and increase fluids and rest. 11/08/24 -?-?-?-?-?-?-?-?-?-?-?-?- 34w 1d 92.136 kg 101/69 occasional cephalic 33 135 active Reports good movement. Complains with occasional contraction. Denies leaking or bleeding. Discharge and itching is improved. Patient did have positive yeast on the new swab. Also complaining of cough cold sore throat runny nose. States everybody in the family has a cold., covid- Amoxicillin 500 p.o. twice daily x 7 days. I gave Diflucan 151 tab p.o. daily x 3 days. Discussed labor precautions and kick count. Increase fluids. Comfort measures for cough and cold. Patient is compliant with weekly NST BPP. Maternal- medicine appointment is November 19. GBS next visit. And I reviewed danger signs symptoms and ER precautions 11/20/24 -?-?-?-?-?-?-?-?-?-?-?-?- 35w 6d 92.079 kg 108/71 occasional cephalic 35 135 active Okay reports good movement. Patient has concerns about the baby having a small VSD. Denies leaking, denies bleeding. Increased cramps Discussed ultrasound and dates. Discussed labor precautions. Kick counts twice a day. Increase fluids. Return in a week OB check Discussed ultrasound and char es. Discussed labor precautions. Kick counts twice a day. Increase fluids. Return in a week OB check. GBS today RODGER Calculator Estimated Delivery Date Method Current WG Current Estimate 12/19/24 Ultrasound #1 35w 6d Other Estimates 12/07/24 LMP (Certain) 37w 4d 12/14/24 Ultrasound #2 36w 4d 12/19/24 Manual 35w 6d final rodger: 12/05 07/29. EFW: 24%, small VSD, 1.6 Notes Visit Date: 11/20/24 Last Updated by: Laurie Barrios CNM 10/12/24: small VSD:1.6mm. baby needs ECHO at 2 week old per [facility] 1st sono: 04/26/24: IUP 6 week1. EDC: 12/19/25, ultrasound viewed at [facility] Visit Date: 10/31/24 Last Updated by: Laurie Barrios CNM [id number]. poor dates. LMP: 03/02/25. EDC: 12/07/24. 1st ob sono: 04/26/24. IUP: 6 week. CEDC: 12/19/24. [facility] sono: 10/29/24: 33 weel. EDC: 12/17/24 OB panel: A_+> abs-, rpr;;nr, rub IMM< hbsag-, hiv-, HC-, gc/CT-, ut-, . nipt/afp-, 1 HR GTT- Office Procedures OB Clinic LOC & Office Proc's Nursing/Assessment Patient Status: Established Patient OB Clinic Nursing Assessment: Medication Reconciliation, Update PMH in EMR and Vital Signs OB Clinic Coordination of Care: Education Complex Pt/Fam, Consent,records obtained, informed consent, Lab and Imaging orders, Results/Orders obtained and Staff clarify orders Special Needs: Heart tones Established Patient Charge Established Patient Point Assignment: 115 Established Patient Point Charge: EP Level 3 (80-115) Assessment & Plan Diagnosis / Problem List (1) Encounter for supervision of high risk in third trimester, antepartum: Status: Acute (2) Lupus anticoagulant affecting in third trimester, antepartum: Status: Acute (3) Grand multiparity with current : Status: Acute Qualifiers: Trimester: third trimester Qualified Code(s): O09.43 - Supervision of with grand multiparity, third trimester Plan GBS today labor precautions and kick count twice a day. Discussed dates. Increase fluids. Return in 2 weeks OB check and Additional Plan Follow Up: 2 Weeks (obc)
[2024-11-20 13:10] VITALS: BP 108/71; PULSE 76; RESP 16; TEMP 36.2; O2SAT 98; BMI 31.8
== END 2024-11-20 13:36 | disposition home or self-care (01) ==
LOC: HODSOBC 12:55
PROVIDERS: Supervising Provider Advanced Practice Midwife; Visit Provider Advanced Practice Midwife
DX: O09.893 Supervision of other high risk pregnancies, third trimester (principal); O99.113 Other diseases of the blood and blood-forming organs and certain disorders involving the immune mechanism complicating pregnancy, third trimester; D68.62 Lupus anticoagulant syndrome; O09.43 Supervision of pregnancy with grand multiparity, third trimester; Z3A.35 35 weeks gestation of pregnancy; Z36.85 Encounter for antenatal screening for Streptococcus B
CPT/HCPCS: 99213; G0463

== ENCOUNTER 2024-11-26 10:07 | Outpatient (AMB) | payer MEDICAID, SELFPAY ==
[2024-11-26 10:17] VITALS: BP 106/69; PULSE 92; RESP 18; TEMP 36.2; O2SAT 97; BMI 31.8
--- NOTE | 2024-11-26 10:17 | OBCLNT_ITS ---
Vital Signs 11/26/24 10:17 Height 1.7 m Height Method Measured Weight 92.136 kg Weight Measurement Method Standing Scale BMI 31.8 BP 106/69 Blood Pressure Source Automatic Cuff Blood Pressure Location Right Upper Arm Position Sitting Respiration 18 Pulse 92 Pulse Source Monitor Temp 97.1 F Temp Source Temporal Artery Scan Pulse Oximetry (%) 97 Oxygen Delivery Method Room Air Allergies/Home Meds Allergies & Medications Allergies No Known Allergies Allergy (Verified 11/20/24 13:13) Intake Visit Data Collection New Patient or Established: Established Patient (seen at [facility] [place] Reason for Visit:: OBC FOLLOW UP\/RESULTS Seen by Clinical Staff ONLY (RN/MA): 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 1. Little interest or pleasure in doing things: not at all PHQ-9 8. Moving or speaking so slowly that other people could have noticed? - Or the opposite - being so fidgety or restless that you have been moving around a lot more than usual: not at all Source: Developed by Drs. Maurisio Carreno, Merissa Renee, Rubens Sauer and colleagues, with an educational david from [employer]. 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 Patient was seen at [facility] in [place] for several visits. Poor dates last. March 02, 2025. And by LMP this gave her due date 12/07/2024. Patient's first ultrasound was May 04, 2024. She was 6 weeks 1 and this corrected EDC to December 19, 2024. Patient has a history of lupus with the . She also sees a provider for her lupus [facility]. Lupus workup was not done with the labs were not done as well. Patient did have a visit at [facility]. She had an ultrasound on October 29 she was 33 weeks and this confirmed dates. The sono showed normal anatomy. And she was scheduled for a follow-up in 5 weeks. Schedule weekly NST BPP. Remind patient to keep her follow-up appointment at [facility]. Discussed labor precautions and kick count. New swab was done today and I gave her prescription for metronidazole 500 twice daily and Diflucan 150 daily x 3 for a yeast infection she had white curdy discharge. Discussed labor precautions and increase fluids and rest. 11/08/24 -?-?-?-?-?-?-?-?-?-?-?-?- 34w 1d 92.136 kg 101/69 occasional cephalic 33 135 active Reports good movement. Complains with occasional contraction. Denies leaking or bleeding. Discharge and itching is improved. Patient did have positive yeast on the new swab. Also complaining of cough cold sore throat runny nose. States everybody in the family has a cold., covid- Amoxicillin 500 p.o. twice daily x 7 days. I gave Diflucan 151 tab p.o. daily x 3 days. Discussed labor precautions and kick count. Increase fluids. Comfort measures for cough and cold. Patient is compliant with weekly NST BPP. Maternal- medicine appoi ntment is November 19. GBS next visit. And I reviewed danger signs symptoms and ER precautions 11/20/24 -?-?-?-?-?-?-?-?-?-?-?-?- 35w 6d 92.079 kg 108/71 occasional cephalic 35 135 active Okay reports good movement. Patient has concerns about the baby having a small VSD. Denies leaking, denies bleeding. Increased cramps Discussed ultrasound and dates. Discussed labor precautions. Kick counts twice a day. Increase fluids. Return in a week OB check Discussed ultrasound and char es. Discussed labor precautions. Kick counts twice a day. Increase fluids. Return in a week OB check. GBS today 11/26/24 -?-?-?-?-?-?-?-?-?-?-?-?- 36w 5d 92.136 kg 106/69 occasional cephalic 36 136 active 1.5 -3 50 Doing well. Reports good movement. Increased pressure. Denies leaking, bleeding, regular contractions D iscussed GBS is negative. Discussed labor precautions. Kick count twice a day. Continue weekly NST BPP. Return in a week for recheck RODGER Calculator Estimated Delivery Date Method Current WG Current Estimate 12/19/24 Ultrasound #1 36w 5d Other Estimates 12/07/24 LMP (Certain) 38w 3d 12/14/24 Ultrasound #2 37w 3d 12/19/24 Manual 36w 5d final rodger: 12/05 07/29. EFW: 24%, small VSD, 1.6 Notes Visit Date: 11/26/24 Last Updated by: Laurie Barrios CNM 11/26:GBS- Visit Date: 11/20/24 Last Updated by: Laurie Barrios CNM 10/12/24: small VSD:1.6mm. baby needs ECHO at 2 week old per [facility] 1st sono: 04/26/24: IUP 6 week1. EDC: 12/19/25, ultrasound viewed at [place] [facility] Visit Date: 10/31/24 Last Updated by: Laurie Barrios CNM [id number]. poor dates. LMP: 03/02/25. EDC: 12/07/24. 1st ob sono: 04/26/24. IUP: 6 week. CEDC: 12/19/24. [facility] sono: 10/29/24: 33 weel. EDC: 12/17/24 OB panel: A_+> abs-, rpr;;nr, rub IMM< hbsag-, hiv-, HC-, gc/CT-, ut-, . nipt/afp-, 1 HR GTT- Office Procedures OB Clinic LOC & Office Proc's Nursing/Assessment Patient Status: Established Patient OB Clinic Nursing Assessment: Medication Reconciliation, Update PMH in EMR and Vital Signs OB Clinic Coordination of Care: Complex Care and Chronic Disease 1-5, Education Complex Pt/Fam, Consent,records obtained, informed consent, 1 Ins Authorization, Lab and Imaging orders and Results/Orders obtained Special Needs: Heart tones Established Patient Charge Established Patient Point Assignment: 145 Established Patient Point Charge: EP Level 4 (120-155) Assessment & Plan Diagnosis / Problem List (1) Grand multiparity with current : Status: Acute Qualifiers: Trimester: third trimester Qualified Code(s): O09.43 - Supervision of with grand multiparity, third trimester (2) Encounter for supervision of high risk in third trimester, antepartum: Status: Acute (3) Lupus anticoagulant affecting in third trimester, antepartum: Status: Acute Plan Discussed labor precautions. Discussed kick count twice a day. Continue weekly NST BPP. Return in a week for OB check. Discussed danger signs symptoms and ER precautions Additional Plan Follow Up: 1 Week (obc)
== END 2024-11-26 10:44 | disposition home or self-care (01) ==
LOC: HODSOBC 10:07
PROVIDERS: Supervising Provider Advanced Practice Midwife; Visit Provider Advanced Practice Midwife
DX: O09.43 Supervision of pregnancy with grand multiparity, third trimester (principal); O09.893 Supervision of other high risk pregnancies, third trimester; O99.113 Other diseases of the blood and blood-forming organs and certain disorders involving the immune mechanism complicating pregnancy, third trimester; D68.62 Lupus anticoagulant syndrome; Z3A.36 36 weeks gestation of pregnancy
CPT/HCPCS: 99214; G0463

== ENCOUNTER 2024-12-03 12:56 | Outpatient (AMB) | payer MEDICAID, SELFPAY ==
[2024-12-03 13:02] VITALS: BP 116/76; PULSE 84; RESP 16; TEMP 36.3; O2SAT 98; BMI 32.2
--- NOTE | 2024-12-03 13:02 | AMB.OBVISIT ---
Vital Signs 12/03/24 13:02 Height 1.7 m Height Method Stated Weight 93.157 kg Weight Measurement Method Standing Scale BMI 32.2 BP 116/76 Blood Pressure Source Automatic Cuff Blood Pressure Location Right Upper Arm Position Sitting Respiration 16 Pulse 84 Pulse Source Monitor Temp 97.3 F Temp Source Oral Pulse Oximetry (%) 98 Oxygen Delivery Method Room Air Allergies/Home Meds Allergies & Medications Allergies No Known Allergies Allergy (Verified 12/03/24 13:03) Medication Reconciliation prenat.vits,meche,xdh-naee-iaoxx 1 tab PO QDAY 01/23/23 [History Confirmed 12/03/24] ferrous sulfate 325 mg (65 mg iron) tablet 325 mg PO BID #60 tabs 10/31/24 [Rx Confirmed 12/03/24] vitamin-ferrous fumarate 28 mg iron-folic acid 800 mcg tablet ( Vitamins with Minerals) 1 tab PO QDAY #60 tabs 10/31/24 [Rx Confirmed 12/03/24] amoxicillin 500 mg capsule 500 mg PO BID #14 caps 11/08/24 [Rx Confirmed 12/03/24] ondansetron 4 mg disintegrating tablet 4 mg PO Q6H PRN nausea and vomiting 30 days #120 tabs 11/22/24 [Rx Confirmed 12/03/24] Intake Visit Data Collection New Patient or Established: Established Patient (seen at [facility] within 3 years) Reason for Visit:: CARE Seen by Clinical Staff ONLY (RN/MA): No 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 1. Little interest or pleasure in doing things: not at all 2. Feeling down, depressed, or hopeless: not at all Total score: 0 PHQ-9 3. Trouble falling or staying asleep, or sleeping too much: Not at all 4. Feeling tired or having little energy: Not at all 5. Poor appetite or overeating: Not at all 6. Feeling bad about yourself - or that you are a failure or have let yourself or your family down: Not at all 7. Trouble concentrating on things, such as reading the newspaper or watching television: Not at all 8. Moving or speaking so slowly that other people could have noticed? - Or the opposite - being so fidgety or restless that you have been moving around a lot more than usual: not at all 9. Thoughts that you would be better off or of hurting yourself in some way: Not at all Total score: 0 Source: Developed by Drs. Maurisio Carreno, Merissa Renee, Rubens Sauer and colleagues, with an educational david from [employer]. 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 Patient was seen at [facility] in [place] for several visits. Poor dates last. March 02, 2025. And by LMP this gave her due date 12/07/2024. Patient's first ultrasound was May 04, 2024. She was 6 weeks 1 and this corrected EDC to December 19, 2024. Patient has a history of lupus with the . She also sees a provider for her lupus at [facility]. Lupus workup was not done with the labs were not done as well. Patient did have a visit at [facility]. She had an ultrasound on October 29 she was 33 weeks and this confirmed dates. The sono showed normal anatomy. And she was scheduled for a follow-up in 5 weeks. Schedule weekly NST BPP. Remind patient to keep her follow-up appointment at [facility]. Discussed labor precautions and kick count. New swab was done today and I gave her prescription for metronidazole 500 twice daily and Diflucan 150 daily x 3 for a yeast infection she had white curdy discharge. Discussed labor precautions and increase fluids and rest. 11/08/24 <del>?</del> 34w 1d 92.136 kg 101/69 occasional cephalic 33 135 active Reports good movement. Complains with occasional contraction. Denies leaking or bleeding. Discharge and itching is improved. Patient did have positive yeast on the new swab. Also complaining of cough cold sore throat runny nose. States everybody in the family has a cold., covid- Amoxicillin 500 p.o. twice daily x 7 days. I gave Diflucan 151 tab p.o. daily x 3 days. Discussed labor precautions and kick count. Increase fluids. Comfort measures for cough and cold. Patient is compliant with weekly NST BPP. Maternal- medicine appointment is November 19. GBS next visit. And I reviewed danger signs symptoms and ER precautions 11/20/24 <del>?</del> 35w 6d 92.079 kg 108/71 occasional cephalic 35 135 active Okay reports good movement. Patient has concerns about the baby having a small VSD. Denies leaking, denies bleeding. Increased cramps Discussed ultrasound and dates. Discussed labor precautions. Kick counts twice a day. Increase fluids. Return in a week OB check Discussed ultrasound and dates. Discussed labor precautions. Kick counts twice a day. Increase fluids. Return in a week OB check. GBS today 11/26/24 <del>?</del> 36w 5d 92.136 kg 106/69 occasional cephalic 36 136 active 1.5 -3 50 Doing well. Reports good movement. Increased pressure. Denies leaking, bleeding, regular contractions Discussed GBS is negative. Discussed labor precautions. Kick count twice a day. Continue weekly NST BPP. Return in a week for recheck 12/03/24 <del>?</del> 37w 5d 93.157 kg 116/76 occasional cephalic 36 135 active 2 -2 50 Vaginal exam today was 50%, 2, -2. Vertex. Bag water intact. No bloody show or fluid leaking. Occasional contraction. Patient has increased pressure. Reports good IOL 12/14/24. nst/bpp this week. Discussed labor precautions. Kick count twice a day. Continue with weekly NST BPP. Return in a week OB check RODGER Calculator Estimated Delivery Date Method Current WG Current Estimate 12/19/24 Ultrasound #1 37w 5d Other Estimates 12/07/24 LMP (Certain) 39w 3d 12/14/24 Ultrasound #2 38w 3d 12/19/24 Manual 37w 5d final rodger: 12/19/24. EFW: 24%, small VSD, 1.6 Notes Visit Date: 11/26/24 Last Updated by: Laurie Barrios CNM 11/26:GBS- Visit Date: 11/20/24 Last Updated by: Laurie Barrios CNM 10/12/24: small VSD:1.6mm. baby needs ECHO at 2 week old per [facility] 1st sono: 04/26/24: IUP 6 week1. EDC: 12/19/25, ultrasound viewed at [place] [facility] Visit Date: 10/31/24 Last Updated by: Laurie Barrios CNM [id number]. poor dates. LMP: 03/02/25. EDC: 12/07/24. 1st ob sono: 04/26/24. IUP: 6 week. CEDC: 12/19/24. [facility] sono: 10/29/24: 33 weel. EDC: 12/17/24 OB panel: A_+> abs-, rpr;;nr, rub IMM< hbsag-, hiv-, HC-, gc/CT-, ut-, . nipt/afp-, 1 HR GTT- Office Procedures OBC Clinic LOC & Office Proc's Nursing/Assessment Patient Status: Established Patient OB Clinic Nursing Assessment: Medication Reconciliation, Update PMH in EMR and Vital Signs OB Clinic Coordination of Care: Complex Care and Chronic Disease 1-5, Consent,records obtained, informed consent, Education Simp Pt/Fam, Lab and Imaging orders, Results/Orders obtained and Staff clarify orders Special Needs: Heart tones Established Patient Charge Established Patient Point Assignment: 135 Established Patient Point Charge: EP Level 4 (120-155) Assessment & Plan Diagnosis / Problem List (1) Vaginitis affecting in third trimester, antepartum: Status: Acute Plan Continue weekly NST BPP for lupus and SGA. Discussed labor precautions and kick count. Patient will do kick count twice a day. Schedule induction of labor for December 14, 2024. Return in a week OB check Additional Plan Follow Up: 1 Week (obc)
== END 2024-12-03 13:34 | disposition home or self-care (01) ==
LOC: HODSOBC 12:56
PROVIDERS: Supervising Provider Advanced Practice Midwife; Visit Provider Advanced Practice Midwife
DX: O09.893 Supervision of other high risk pregnancies, third trimester (principal); O23.593 Infection of other part of genital tract in pregnancy, third trimester; N76.0 Acute vaginitis; O36.5930 Maternal care for other known or suspected poor fetal growth, third trimester, not applicable or unspecified; Z3A.37 37 weeks gestation of pregnancy
CPT/HCPCS: 99214; G0463

== ENCOUNTER 2024-12-05 13:25 | Outpatient (RCR) | payer MEDICAID, SELFPAY ==
--- NOTE | 2024-11-08 12:46 | XR_ITS ---
Examination: Biophysical profile, ultrasound Date and time of exam: November 08, 2024 1236 hours INDICATIONS: Lupus diagnosis Technique: Multiple transabdominal sonographic images of the pelvis abdomen obtained. Attention is directed to the breathing movement, gross body movement, amniotic fluid volume and tone. Findings: Amniotic fluid index 9.7 cm Total biophysical profile is 8 of 8. breathing movement is 2. Gross body movement is 2. tone is 2. Qualitative amniotic fluid volume is 2 Impression: Biophysical profile is 8 of 8.
[2024-11-08 13:21] VITALS: BP 110/65; PULSE 86; RESP 16; TEMP 36.8
--- NOTE | 2024-11-21 13:11 | XR_ITS ---
Examination: Biophysical profile, ultrasound Date and time of exam: November 21, 2024 1316 hours INDICATIONS: Diagnosis of lupus Technique: Multiple transabdominal sonographic images of the pelvis abdomen obtained. Attention is directed to the breathing movement, gross body movement, amniotic fluid volume and tone. Findings: Amniotic fluid index 7.5 cm Total biophysical profile is 8 of 8. breathing movement is 2. Gross body movement is 2. tone is 2. Qualitative amniotic fluid volume is 2 Impression: Biophysical profile is 8 of 8.
[2024-11-21 13:47] VITALS: BP 110/64; PULSE 84; RESP 16; TEMP 36.7
--- NOTE | 2024-11-28 13:34 | XR_ITS ---
Examination: Biophysical profile, ultrasound Date and time of exam: November 28, 2024, 1405 hours INDICATIONS: Lupus diagnosis Technique: Multiple transabdominal sonographic images of the pelvis abdomen obtained. Attention is directed to the breathing movement, gross body movement, amniotic fluid volume and tone. Findings: Amniotic fluid index 15.6 cm Total biophysical profile is 8 of 8. breathing movement is 2. Gross body movement is 2. tone is 2. Qualitative amniotic fluid volume is 2 Impression: Biophysical profile is 8 of 8.
[2024-11-28 14:43] VITALS: BP 99/65; PULSE 67; RESP 16; TEMP 36.7
--- NOTE | 2024-12-05 13:44 | XR_ITS ---
Examination: Biophysical profile, ultrasound Date and time of exam: December 05, 2024, 1344 hours INDICATIONS: Diagnosis high risk , diagnosis pelvic contractions one week Technique: Multiple transabdominal sonographic images of the pelvis abdomen obtained. Attention is directed to the breathing movement, gross body movement, amniotic fluid volume and tone. Findings: Amniotic fluid index 14.0 cm Total biophysical profile is 8 of 8. breathing movement is 2. Gross body movement is 2. tone is 2. Qualitative amniotic fluid volume is 2 Impression: Biophysical profile is 8 of 8.
[2024-12-05 14:01] VITALS: BP 100/55; PULSE 76; RESP 16; TEMP 36.8
== END 2024-12-05 23:59 | disposition home or self-care (01) ==
LOC: S4S1 13:25
PROVIDERS: PCP Family Medicine; Referring Provider Advanced Practice Midwife; Visit Provider Advanced Practice Midwife
DX: O99.113 Other diseases of the blood and blood-forming organs and certain disorders involving the immune mechanism complicating pregnancy, third trimester (principal); D68.62 Lupus anticoagulant syndrome; O09.93 Supervision of high risk pregnancy, unspecified, third trimester; O09.43 Supervision of pregnancy with grand multiparity, third trimester; Z3A.38 38 weeks gestation of pregnancy
CPT/HCPCS: 59025; 76819

== ENCOUNTER 2024-12-06 17:06 | Inpatient (IN) | payer MEDICAID, SELFPAY ==
[2024-12-06] VITALS (100 sets, daily range): BP systolic 101–118; BP diastolic 55–75; PULSE 64–100; RESP 20–99; TEMP 36.6–37.1; O2SAT 90–100; BMI 32.1; BMI 32.2
[2024-12-06 18:11] LABS: ROM Kit Lot # 58104371
[2024-12-06 18:12] LABS: ROM Kit Exp Date# 01/18/28; ROM Swab Mixed By: LOEFL; Swb Mxed in Solvent 1 min? Yes
[2024-12-06 18:13] LABS: Rupture of Fetal Membranes Positive (Negative)
[2024-12-06] MEDS: RINGERS LACTATED 1000 ML 1,000 ML 999 ML IV ×3 (19:10→21:05)
[2024-12-06 19:22] LABS: Basophils # (Auto) 0.0 Thou/mm3 (0.0-0.2); Basophils % (Auto) 0 % (0-2.5); Eosinophils # (Auto) 0.0 Thou/mm3 (0.0-0.5); Eosinophils % (Auto) 0 % (0-10); Hematocrit 30.5 % (36.0-46.0); Hemoglobin 10.0 g/dL (12.0-16.0); Immature Granulocytes Auto 0.04 Thou/mm3 (0.00-0.00); Lymphocytes # (Auto) 1.9 Thou/mm3 (1.0-4.8); Lymphocytes % (Auto) 21 % (10-50); Mean Corpuscular HGB Conc 32.8 g/dl (31.0-37.0); Mean Corpuscular Hemoglobin 25.1 pg (25.0-35.0); Mean Corpuscular Volume 76 fL (80-100); Monocytes # (Auto) 0.5 Thou/mm3 (0.0-0.8); Monocytes % (Auto) 5 % (0-12); Neutrophils # (Auto) 6.6 Thou/mm3 (1.8-7.7); Neutrophils % (Auto) 73 % (37-80); Nucleated Red Blood Cell # 0.00 Thou/mm3 (0.00-0.00); Nucleated Red Blood Cell % 0 /100 WBC (0); Platelet Count 345 Thou/mm3 (140-440); RDW Standard Deviation 41.5 fL (36.4-46.3); Red Blood Count 3.99 Miln/mm3 (4.00-5.20); White Blood Count 9.1 Thou/mm3 (3.6-11.0)
[2024-12-06] MEDS: Ampicillin Inj 2,000 MG in SODIUM CHLORIDE 0.9% (POP) 100 ML 200 MG IV (19:43)
[2024-12-06 20:03] LABS: Syphilis Nonreactive (Nonreactive)
[2024-12-06] MEDS: OXYTOCIN in NS 30 units 30 UNIT/500 ML BAG IV (21:27)
[2024-12-06] MEDS: FAMOTIDINE INJ 10 MG/ML VIAL 2 ML 20 MG IVP (21:33)
[2024-12-06] MEDS: Ampicillin Inj 1,000 MG in SODIUM CHLORIDE 0.9% (Popper) 50 ML 50 MG IV (23:44)
[2024-12-07] VITALS (49 sets, daily range): BP systolic 97–117; BP diastolic 52–80; PULSE 64–92; RESP 16–20; TEMP 36.7–37.1; O2SAT 93–100
[2024-12-07] MEDS: RINGERS LACTATED 1000 ML 1,000 ML 999 ML IV (01:03)
[2024-12-07] MEDS: OXYTOCIN INJ 10 UNIT/ML VIAL IM (02:10)
[2024-12-07] MEDS: OXYTOCIN in NS 20 units 20 UNIT/1,000 ML BAG 999 UNIT IV (02:11)
[2024-12-07] MEDS: BENZO/LANO/ALOE (Dermoplast) 60 GM CAN 1 SPRAY TOP (02:12)
[2024-12-07] MEDS: METHYLERGONOVINE INJ 0.2 MG/ML VIAL IM (02:13)
[2024-12-07] MEDS: TRANEXAMIC ACID 1,000 MG IVPB 1,000 MG/100 ML BAG 200 MG IV ×2 (02:42→03:52)
--- NOTE | 2024-12-07 02:59 | ESHP_ITS ---
Documentation for date of: 12/07/24 OB Labor/Induct. HPI History of Present Illness Chief complaint: Leaking, contractions : 7 Para: 5 Term pregnancies: 5 pregnancies: 0 Living children: 5 History of Abortions: Spontaneous and Elective: 1 History of Vaginal deliveries: 5 History of sections: No History of : No Date of last menstrual period: 03/14/24 RODGER: 12/19/24 Gestational Age (weeks): 38 Gestational Age (days): 2 Gestational age based on last menstrual period: 38 History of present illness: This is a 29-year-old 7 para 5 admitted to labor and delivery with complaints of leaking since 0150 in the morning December 06. Patient has been followed at [facility] clinic for care. Her first visit was at 32 weeks. Patient has a history of irregular periods and poor dates. Her last. March 14, 2024. And this gives due date December 19, 2024. History of lupus and obesity. On the last MFM sono baby was noted to have a small VSD. Denies social habits. Denies surgery. Denies chronic illness. Patient is A+, antibody screen negative, RPR nonreactive, rubella immune, hepatitis B negative, hep C negative, HIV negative, GC and Chlamydia were negative. Her 1 hour was negative. And NIPT, AFP and carrier screens all negative. GBS negative. History of Present Dating criteria: based on 3rd trimester US only Adequate Care: Yes Ultrasounds: normal mid trimester US Obstetrical complications: none Medical complications: other (Lupus) Labs Labs: Positive: Rubella Titre, Negative: RPR, Hepatitis B, HIV, Chlamydia, Gonorrhea and Group Beta Strep and Unknown: Herpes Type 1, Herpes Type 2 and Covid-19 Review of Systems Review of Systems Systems Reviewed: All systems reviewed, normal except as documented Past Medical History Surgical History SURGICAL: Negative Section Meds Home Medications and Allergies Home Medications ?Medication ?Instructions ?Recorded ?Confirmed ?Type prenat.vits,meche,bfe-tynq-ggbfh 1 tab PO QDAY 01/23/23 12/03/24 History Allergies Allergy/AdvReac Type Severity Reaction Status Date / Time No Known Allergies Allergy Verified 12/03/24 13:03 OB Exam Physical Exam Vital signs: Temp Pulse Resp BP Pulse Ox 97.9 F 78 20 114/60 100 12/06/24 23:47 12/07/24 02:58 12/06/24 17:33 12/07/24 02:58 12/07/24 02:02 Narrative: Normal heart rate and rhythm. Lungs clear no wheezes. Gravid abdomen. Gynecoid pelvis. Estimated weight 6-1/2 pounds. Vaginal exam on admission was 60%, 3, -3. Positive AmniSure. Contractions on admission were irregular. heart rate category 1 with accelerations and moderate variability. Vital signs were stable on admission Routine Abdominal Exam Abdominal: Present soft Detailed Labor and Delivery Exam Dilation (cm): 3 Effacement (%): 60 Cervix position: posterior station: -3 Consistency: soft Presentation: Vertex Cervical ripeness score: 6 Membranes: ruptured Amniotic fluid: clear Baseline heart rate: 145 monitor accelerations: 15x15 monitor decelerations: None longterm variability: Moderate (11-25) Contraction frequency (min): irreg Contraction duration (sec): 30 Tachysystole: No Contraction intensity: Mild OB Results Labs 12/06/24 19:05 Labs: Short CBC 12/06/24 Range/Units 19:05 WBC 9.1 (3.6-11.0) Thou/mm3 Hgb 10.0 L (12.0-16.0) g/dL Hct 30.5 L (36.0-46.0) % Plt Count 345 D (140-440) Thou/mm3 OB Assessment & Plan Additional Plan Induction method: none Plan: augmentation, anticipate NVD, GBS prophylaxis tx and consult MD evans
--- NOTE | 2024-12-07 03:05 | OBDSUM_ITS ---
Data ([employer]) Data Hx Section: No : 7 Term: 5 : 0 Livin Abortions: Spontaneous & Theraputic: 1 Delivery Data ([employer]) Labor Data Initiation of labor: Augmentation Induction/Augmentation Agent: Pitocin ROM date: 12/06/24 ROM time: 01:55 Amniotic membrane rupture type: Spontaneous Amniotic fluid description: Clear and Light Meconium Delivery Data EDC: 12/19/24 EDC calculated by:: ultrasound Date of arrival to unit: 12/06/24 Time of arrival to unit: 17:06 Onset of labor date: 12/06/24 Onset of labor time: 16:00 Complete dilation date: 12/07/24 Complete dilation time: 01:49 [place] delivery date: 12/07/24 delivery time: 02:06 Placenta delivery date: 12/07/24 Placenta delivery time: 02:12 Stage 1 total time: Labor - Stage 1 Duration 9 hours and 49 minutes Delivered by: Laurie Barrios Delivery nurse: Batool Arshad RN [place] nurse: Marsha Domínguez RN 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 [employer] at delivery: No Support person(s) at delivery: Mother in law, Significant other on facetime Other staff at delivery: RT Cheli Rodríguez RN Delivery Method Delivery method: Normal Vaginal Delivery Presentation: Breech (posterior hand) position: OA Anesthesia Type Anesthesia Type: Epidural Delivery Room Medications Delivery room medications: Methergine 0.2 mg IM, Pitocin 10 u IM, Pitocin 20 u IV, Cytotec 800 KS and other (TXA) Placenta Placenta delivery description: Spontaneous (inspected, intact) Cord blood sent to lab: Yes cord blood collection: Cord Blood Type Episiotomy Episiotomy description: None (intact) EBL Estimated blood loss (ml): 400 Umbilical Cord cord description: 3 Vessels and Nuchal Cord Data ([employer]) Data order: 1 's gender: Male Identification band number: [id number] weight (gms): 2820 g Weight (pounds): 6 lbs and 3.5 ozs [place] length: 50.8 cm 1 minute: 5 5 minutes: 5
[2024-12-07] MEDS: IBUPROFEN TAB 400 MG TABLET 800 MG PO ×2 (03:55→15:53)
--- NOTE | 2024-12-07 04:56 | PC.NURSE ---
Pt is complaining of nausea. Pt just throw up. Notify Laurie. REcceived new orders.
[2024-12-07] MEDS: ONDANSETRON INJ 2 MG/ML INJ 2 ML 4 MG IVP (05:05)
[2024-12-07] MEDS: DOCUSATE SOD 100 MG CAPSULE PO ×2 (08:22→20:04)
[2024-12-07] MEDS: ACETAMINOPHEN 325 MG TABLET 650 MG PO ×2 (08:22→20:04)
[2024-12-07 11:05] LABS: Basophils # (Auto) 0.0 Thou/mm3 (0.0-0.2); Basophils % (Auto) 0 % (0-2.5); Eosinophils # (Auto) 0.0 Thou/mm3 (0.0-0.5); Eosinophils % (Auto) 0 % (0-10); Hematocrit 28.5 % (36.0-46.0); Hemoglobin 9.2 g/dL (12.0-16.0); Immature Granulocytes Auto 0.03 Thou/mm3 (0.00-0.00); Lymphocytes # (Auto) 1.5 Thou/mm3 (1.0-4.8); Lymphocytes % (Auto) 15 % (10-50); Mean Corpuscular HGB Conc 32.3 g/dl (31.0-37.0); Mean Corpuscular Hemoglobin 25.3 pg (25.0-35.0); Mean Corpuscular Volume 78 fL (80-100); Monocytes # (Auto) 0.7 Thou/mm3 (0.0-0.8); Monocytes % (Auto) 7 % (0-12); Neutrophils # (Auto) 8.1 Thou/mm3 (1.8-7.7); Neutrophils % (Auto) 78 % (37-80); Nucleated Red Blood Cell # 0.00 Thou/mm3 (0.00-0.00); Nucleated Red Blood Cell % 0 /100 WBC (0); Platelet Count 338 Thou/mm3 (140-440); RDW Standard Deviation 41.8 fL (36.4-46.3); Red Blood Count 3.64 Miln/mm3 (4.00-5.20); White Blood Count 10.4 Thou/mm3 (3.6-11.0)
[2024-12-08 00:50] VITALS: BP 109/75; PULSE 69; RESP 20; TEMP 36.6; O2SAT 99
[2024-12-08 04:08] VITALS: BP 94/62; PULSE 70; RESP 20; TEMP 36.6; O2SAT 99
--- NOTE | 2024-12-08 08:35 | PD.LDPPPRG ---
Subjective Subjective Interval history: The patient is a 29-year-old -0-1-6. Status post vaginal delivery 10 3 around 2:00 in the morning by Laurie. Today the patient is resting comfortably at the edge of her bed. She is wearing her own close. The baby is at bedside. She is breast and bottlefeeding. She denies dysuria or heavy bleeding. Pain is controlled. She would like to go home. Exam Vital Signs Temp Pulse Resp BP Pulse Ox O2 Del Method 97.9 F 70 20 94/62 99 Room Air 12/08/24 04:08 12/08/24 04:08 12/08/24 04:08 12/08/24 04:08 12/08/24 04:08 12/08/24 04:08 Narrative Exam Patient is alert and orient x 3 in no apparent distress. Fundus is firm nontender. Extremities show no significant edema or erythema. Objective Labs 12/07/24 10:50 Labs: Laboratory Results - last 24 hr 12/07/24 10:50 WBC 10.4 RBC 3.64 L Hgb 9.2 L Hct 28.5 L MCV 78 L MCH 25.3 MCHC 32.3 RDW Std Deviation 41.8 Plt Count 338 Neut % (Auto) 78 Lymph % (Auto) 15 [place] % (Auto) 7 Eos % (Auto) 0 Baso % (Auto) 0 Neut # (Auto) 8.1 H Lymph # (Auto) 1.5 [place] # (Auto) 0.7 Eos # (Auto) 0.0 Baso # (Auto) 0.0 Immature Gran # (Auto) 0.03 H Absolute Nucleated RBC 0.00 Immature Gran % 0 Nucleated RBC % 0 Assessment & Plan Problem List (1) care following vaginal delivery: Status: Acute Assessment and plan: Patient will be discharged home day #1 in stable condition. Discharge instructions included pelvic rest x 6 weeks. No intercourse tampons douching or swimming x 6 weeks. Follow-up with Laurie in 6 weeks Time Spent With Patient Time: Total time spent is greater than 50% in coordination of care (as documented) at patient's floor/unit and/or counseling patient: Time with patient: less than 15 minutes
--- NOTE | 2024-12-08 08:40 | PD.LDDS ---
DS: Providers Provider Date of admission: 12/07/24 03:26 Primary care physician: Physician No Primary/Family Admitting Provider: Laurie Barrios CNM Attending Provider on Admission: Abhay Estrada MD Consults: 12/07/24 03:21 Referral Routine Comment: Attending Provider on DC: Elle Levi MD ([facility]) Discharging Provider: Elle Levi MD ([facility] Clinic) Anticipated date of discharge: 12/08/24 DS: Diagnosis Discharge Diagnosis (1) care following vaginal delivery: Status: Acute Assessment & Plan: Patient is discharged home day #1 in stable condition. Discharge instructions including no intercourse tampons douching for 6 weeks no bathtubs x 6 weeks. Follow-up with Laurie in 6 weeks. (2) Term delivered: Status: Acute Problem List Completed Was Problem List Reviewed/Reconciled?: Yes Summary/Hosp Course Brief History: This is a 29-year-old 7 para 5 admitted to labor and delivery with complaints of leaking since 0150 in the morning December 06. Patient has been followed at [facility] for care. Her first visit was at 32 weeks. Patient has a history of irregular periods and poor dates. Her last. March 14, 2024. And this gives due date December 19, 2024. History of lupus and obesity. On the last MFM sono baby was noted to have a small VSD. Denies social habits. Denies surgery. Denies chronic illness. Patient is A+, antibody screen negative, RPR nonreactive, rubella immune, hepatitis B negative, hep C negative, HIV negative, GC and Chlamydia were negative. Her 1 hour was negative. And NIPT, AFP and carrier screens all negative. GBS negative. See history and physical for further details. Hospital course: Patient was admitted and underwent an uncomplicated vaginal delivery around 2:00 in the morning 12/07/2024 by Laurie. Please see delivery note for further details. Her course was uncomplicated. Post day #1 patient was ambulating, tolerating a general diet, voiding. Her bleeding was minimal. She was breast and bottlefeeding. She was discharged home day #1 in stable condition. Predelivery hemoglobin was 10 postdelivery hemoglobin is 9.2. Discharge instructions including pelvic rest x 6 weeks. Call the office with severe depression, fevers or heavy bleeding. Peripartum Data Delivery Method: Normal Vaginal Delivery Episiotomy Description: None (intact) Laceration Description: see Delivery Summary complications: none Status at Discharge Functional status at discharge: independent ambulation Overall status at discharge: patient is progressing back to baseline Time Spent with Patient Time attestation: Total time spent providing and/or coordinating discharge services: Time spent: Less than 30 minutes Specific discharge activities: Pelvic rest x 6 weeks Exam Vital Signs Temp Pulse Resp BP Pulse Ox O2 Del Method 97.9 F 70 20 94/62 99 Room Air 12/08/24 04:08 12/08/24 04:08 12/08/24 04:08 12/08/24 04:08 12/08/24 04:08 12/08/24 04:08 Narrative Exam Fundus firm, nontender at umbilicus. Extremities show no significant edema or erythema. Discharge Plan Plan Patient Disposition: HOME (Self Care) Disposition Comment: Stable Prescriptions/Referrals Prescriptions/Med Rec: New acetaminophen 325 mg Tablet 650 mg PO Q4H PRN (Reason: See Comments) Qty: 30 0RF ibuprofen 400 mg Tablet 800 mg PO Q8H PRN (Reason: See Comments) Qty: 30 0RF docusate sodium 100 mg Capsule 100 mg PO BID Qty: 30 0RF Continued vit-iron fum-folic ac [ Vitamin with Minerals] 28 mg iron- 800 mcg tablet 1 tab PO QDAY Qty: 60 3RF ferrous sulfate 325 mg (65 mg iron) tablet 325 mg PO BID Qty: 60 2RF amoxicillin 500 mg capsule 500 mg PO BID Qty: 14 0RF Discontinued ondansetron 4 mg tablet,disintegrating 4 mg PO Q6H PRN (Reason: nausea and vomiting) 30 Days Qty: 120 0RF Vitamin Tablet 1 tab PO QDAY Referrals: No Primary/Family,Physician [Primary Care Provider] Patient/Caregiver Discharge Instructions Discharge Activity: activity as tolerated Other Discharge Activity Instructions:: Pelvic rest x 6 weeks Other Discharge Diet Instructions: High iron diet Education Materials: After a Vaginal , After Delivery Spencer Concerns Print Language: Somali Activity Restrictions/Additional Instructions: Pelvic rest x 6 weeks. Call with heavy bleeding fevers or severe depression. Follow-up with Laurie in 4 to 6 weeks. Stand Alone Forms: Vanna Award Info., Patient Portal Info Letter Discharge Order Discharge Orders: Discharge (Routine); Ordered 12/08/24 Ordered By: Elle Levi (OB Clinic) Planned Discharge Date 12/08/24
[2024-12-08 08:55] VITALS: BP 93/59; PULSE 73; RESP 15; TEMP 36.6; O2SAT 98
[2024-12-08] MEDS: DOCUSATE SOD 100 MG CAPSULE PO (09:05)
== END 2024-12-08 12:55 | disposition home or self-care (01) | DRG 560 ==
LOC: S4SX 12-07 05:51 → S4NX 12-07 05:51
PROVIDERS: Admitting Provider Advanced Practice Midwife; Visit Provider Obstetrics & Gynecology
DX: O32.1XX0 Maternal care for breech presentation, not applicable or unspecified (principal); O69.81X0 Labor and delivery complicated by cord around neck, without compression, not applicable or unspecified; O77.0 Labor and delivery complicated by meconium in amniotic fluid; O99.214 Obesity complicating childbirth; O99.345 Other mental disorders complicating the puerperium; F53.0 Postpartum depression; Z37.0 Single live birth; Z3A.38 38 weeks gestation of pregnancy
CPT/HCPCS: 36415; 59025; 59409; 59899; 80053; 81001; 83605; 83880; 84112; 84484; 85025; 85610; 85730; 86780; 86850; 86900; 86901; 87040; 87086; 94762; J0290; J2210; J2405; J2590; J2795; J3010; J3490; J7050; J7120; S0191; A9270

== ENCOUNTER 2025-01-07 09:20 | Outpatient (AMB) | payer MEDICAID, SELFPAY ==
[2025-01-07 09:33] VITALS: BP 111/74; PULSE 64; RESP 14; TEMP 36.6; O2SAT 98; BMI 31.0
--- NOTE | 2025-01-07 09:33 | AMB.OBPP ---
Vital Signs 01/07/25 09:33 Height 1.7 m Height Method Stated Weight 89.868 kg Weight Measurement Method Standing Scale BMI 31.0 BP 111/74 Blood Pressure Source Automatic Cuff Blood Pressure Location Left Upper Arm Position Sitting Respiration 14 Pulse 64 Pulse Source Monitor Temp 97.8 F Temp Source Oral Pulse Oximetry (%) 98 Oxygen Delivery Method Room Air Allergies/Home Meds Allergies & Medications Allergies No Known Allergies Allergy (Verified 01/07/25 09:34) Medication Reconciliation ferrous sulfate 325 mg (65 mg iron) tablet 325 mg PO BID #60 tabs 10/31/24 [Rx Confirmed 01/07/25] vitamin-ferrous fumarate 28 mg iron-folic acid 800 mcg tablet ( Vitamins with Minerals) 1 tab PO QDAY #60 tabs 10/31/24 [Rx Confirmed 01/07/25] docusate sodium 100 mg capsule 100 mg PO BID #30 caps 12/08/24 [Rx Confirmed 01/07/25] Intake Visit Data Collection New Patient or Established: Established Patient (seen at 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 Medical History Past Medical History: No Hx Neurological Disorders, No Hx Cardiac Disorders, No Hx Cancer, Yes Hx Blood Disorders, Yes Hx Anemia, No Hx Gastrointestinal Disorders, No Hx Renal Disease, No Hx Diabetes Mellitus Type 1 and No Hx Diabetes Mellitus Type 2 Questionnaires Covid-19 Vaccine Questionnaire Has patient been vacinated for Covid-19 Have you been vacinated for Covid-19: Yes 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 at Home: Yes EPDS - PP Depression Screening Donaldson Pospartum Depression Screen I have been able to laugh and see the funny side of things: (0) As much as I always could I have looked forward with enjoyment to things: (0) As much as I ever did I have blamed myself unnecessarily when things went wrong: (0) No, never I have been anxious or worried for no good reason: (0) No, not at all I have felt scared or panicky for no very good reason: (0) No, not at all Things have been getting on top of me: (0) No, I have been coping as well as ever I have been so unhappy that I have had difficulty sleeping: (0) No, not at all I have felt sad or miserable: (0) No, not at all I have been so unhappy that I have been crying: (0) No, never The thought of harming myself has occurred to me: (0) Never EPDS completed yes Care OB Visit Log OB Flowsheet Initial Weight: Not Recorded Date <del>?</del> EGA Weight BP Alb Glu CTX Pres Fundal ht FHR Mov Dilation Station Effacement Hx Notes Visit Note 10/31/24 <del>?</del> 33w 0d 91.285 kg 117/79 occasional cephalic 32 140 active 28-year-old 7 para 5 for OBI. Patient was seen at [facility] in [place] for several visits. Poor dates last. March 02, 2025. And by LMP this gave her due date 12/07/2024. Patient's first ultrasound was May 04, 2024. She was 6 weeks 1 and this corrected EDC to December 19, 2024. Patient has a history of lupus with the . She also sees a provider for her lupus at [facility]. Lupus workup was not done with the labs were not done as well. Patient did have a visit at [facility]. She had an ultrasound on October 29 she was 33 weeks and this confirmed dates. The sono showed normal anatomy. And she was scheduled for a follow-up in 5 weeks. Schedule weekly NST BPP. Remind patient to keep her follow-up appointment at [facility]. Discussed labor precautions and kick count. New swab was done today and I gave her prescription for metronidazole 500 twice daily and Diflucan 150 daily x 3 for a yeast infection she had white curdy discharge. Discussed labor precautions and increase fluids and rest. 11/08/24 <del>?</del> 34w 1d 92.136 kg 101/69 occasional cephalic 33 135 active Reports good movement. Complains with occasional contraction. Denies leaking or bleeding. Discharge and itching is improved. Patient did have positive yeast on the new swab. Also complaining of cough cold sore throat runny nose. States everybody in the family has a cold., covid- Amoxicillin 500 p.o. twice daily x 7 days. I gave Diflucan 151 tab p.o. daily x 3 days. Discussed labor precautions and kick count. Increase fluids. Comfort measures for cough and cold. Patient is compliant with weekly NST BPP. Maternal- medicine appointment is November 19. GBS next visit. And I reviewed danger signs symptoms and ER precautions 11/20/24 <del>?</del> 35w 6d 92.079 kg 108/71 occasional cephalic 35 135 active Okay reports good movement. Patient has concerns about the baby having a small VSD. Denies leaking, denies bleeding. Increased cramps Discussed ultrasound and dates. Discussed labor precautions. Kick counts twice a day. Increase fluids. Return in a week OB check Discussed ultrasound and dates. Discussed labor precautions. Kick counts twice a day. Increase fluids. Return in a week OB check. GBS today 11/26/24 <del>?</del> 36w 5d 92.136 kg 106/69 occasional cephalic 36 136 active 1.5 -3 50 Doing well. Reports good movement. Increased pressure. Denies leaking, bleeding, regular contractions Discussed GBS is negative. Discussed labor precautions. Kick count twice a day. Continue weekly NST BPP. Return in a week for recheck 12/03/24 <del>?</del> 37w 5d 93.157 kg 116/76 occasional cephalic 36 135 active 2 -2 50 Vaginal exam today was 50%, 2, -2. Vertex. Bag water intact. No bloody show or fluid leaking. Occasional contraction. Patient has increased pressure. Reports good IOL 10/10/25. nst/bpp this week. Discussed labor precautions. Kick count twice a day. Continue with weekly NST BPP. Return in a week OB check RODGER Calculator Estimated Delivery Date Method Current WG Current Estimate 12/19/24 Ultrasound #1 42w 5d Other Estimates 12/07/24 LMP (Certain) 44w 3d 12/14/24 Ultrasound #2 43w 3d 12/19/24 Manual 42w 5d final rodger: 12/19/24. EFW: 24%, small VSD, 1.6 Notes Visit Date: 11/26/24 Last Updated by: Laurie Barrios CNM 11/26:GBS- Visit Date: 11/20/24 Last Updated by: Laurie Barrios CNM 10/12/24: small VSD:1.6mm. baby needs ECHO at 2 week old per [facility] 1st sono: 04/26/24: IUP 6 week1. EDC: 12/19/25, ultrasound viewed at [facility] Visit Date: 10/31/24 Last Updated by: Laurie Barrios CNM [id number]. poor dates. LMP: 03/02/25. EDC: 12/07/24. 1st ob sono: 04/26/24. IUP: 6 week. CEDC: 12/19/24. [facility] sono: 10/29/24: 33 weel. EDC: 12/17/24 OB panel: A_+> abs-, rpr;;nr, rub IMM< hbsag-, hiv-, HC-, gc/CT-, ut-, . nipt/afp-, 1 HR GTT- HPI Interval History: 29-year-old 7 para 6 for 4-week . Patient had a vaginal December 07, 2024. Baby boy weighing 6 pounds 3 she is bottlefeeding. Reports that she is happy no depression, but she is very tired. She was augmented because of surrounding nail. She has no interval complaints. She has some help at home but it is limited. She plans to use Nexplanon. 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 Lungs clear no wheezes. Abdomen is soft nontender. Uterus well involuted. Perineum is intact no lacerations. No swelling. Small lochia. Negative Homans' sign. 2+ DTRs. No edema no swelling. Breasts are soft General Limitations: no limitations General Appearance: alert, in no apparent distress, comfortable, cooperative, healthy appearing, well developed and well groomed Head Head exam: atraumatic, normocephalic and normal inspection ENT ENT exam: Present normal exam, normal oropharynx and mucous membranes moist Neck Neck exam: Present normal inspection, full ROM and trachea midline Chest Chest inspection: Present normal inspection and symmetric chest wall rise Resp Respiratory exam: Present normal lung sounds bilaterally Card Cardiovascular exam: Present regular rate, normal rhythm and normal heart sounds Abdominal Abdominal exam: Present soft and normal bowel sounds Office Procedures OBC Clinic LOC & Office Proc's Nursing/Assessment Patient Status: Established Patient OB Clinic Nursing Assessment: Medication Reconciliation, Update PMH in EMR and Vital Signs OB Clinic Coordination of Care: Complex Care and Chronic Disease 1-5, Consent,records obtained, informed consent, Education Simp Pt/Fam, Lab and Imaging orders, Results/Orders obtained and Staff clarify orders Established Patient Charge Established Patient Point Assignment: 105 Established Patient Point Charge: EP Level 3 (80-115) Assessment & Plan Diagnosis / Problem List (1) 6 weeks follow-up: Status: Acute (2) Encounter for management and injection of depo-Provera: Status: Acute Plan No sex. We reviewed Nexplanon side effects and advantages and effects on period. Continue prenatals. Increase rest. Increase fluids. Continue prenatals. And we discussed Nexplanon insertion. Return in 2 weeks for Nexplanon insert Care Uterus involuted to: 3 below/negative homans Perineal / incision healing noted: Yes Screened for depression: Yes Depression counseling provided: No Discussed family planning & contraception: Yes Contraception planned: nexplanon Counseling on safe resumption of sexual activity: Yes Counseling on gradual excercise: Yes Discussed and concerns (describe), provided support: Yes Referred to family centered specialist: No Counseled on good nutrition, hydration, and self care: Yes Reviewed vaccine status: No Chronic & current problems reconciled on problem list: No care discussed; questions answered: feeding Follow up: routine/prn Additional counseling & anticipatory guidance provided: rtc nexplanon insert
== END 2025-01-07 09:52 | disposition home or self-care (01) ==
LOC: HODSOBC 09:20
PROVIDERS: Supervising Provider Advanced Practice Midwife; Visit Provider Advanced Practice Midwife
DX: Z39.2 Encounter for routine postpartum follow-up (principal); Z30.09 Encounter for other general counseling and advice on contraception
CPT/HCPCS: 99213; G0463

== ENCOUNTER 2025-01-28 09:40 | Outpatient (AMB) | payer MEDICAID, SELFPAY ==
[2025-01-28 09:48] VITALS: BP 100/67; PULSE 67; RESP 18; TEMP 36.3; O2SAT 98; BMI 31.7
--- NOTE | 2025-01-28 09:48 | GYNCLNT_ITS ---
Vital Signs 01/28/25 09:48 Height 1.7 m Height Method Stated Weight 91.654 kg Weight Measurement Method Standing Scale BMI 31.7 BP 100/67 Blood Pressure Source Automatic Cuff Blood Pressure Location Right Upper Arm Position Sitting Respiration 18 Pulse 67 Pulse Source Monitor Temp 97.4 F Temp Source Temporal Artery Scan Pulse Oximetry (%) 98 Oxygen Delivery Method Room Air Allergies/Home Meds Allergies & Medications Allergies No Known Allergies Allergy (Verified 01/28/25 09:48) Intake Visit Data Collection New Patient or Established: Established Patient (seen at [facility] within 3 years) Reason for Visit:: NEXPLANON INSERTION Seen by Clinical Staff ONLY (RN/MA): No Manager French Required: No Do You Feel Safe at Home: Yes Authorities Contacted: N/A PCP or OBGYN visit in last 3 months: Yes Hx Now: No Are you currently on any form of Control: Yes Last menstrual period: 01/23/25 Pain Present Currently: No Pain Scale Used: Ferreira-Phillips/Numerical Pain scale:: 0 Smoking Status Smoking Status: Never smoker Immunizations Flu Vaccine in the Last 12 Months: No Flu Vaccine Exclusion Criteria: Refused by Patient 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 Menstrual regularity: regular Flow: normal Monthly: Yes How many days does period last: 5 Currently sexually active: No 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 1. Little interest or pleasure in doing things: not at all 2. Feeling down, depressed, or hopeless: not at all Total score: 0 PHQ-9 3. Trouble falling or staying asleep, or sleeping too much: Not at all 4. Feeling tired or having little energy: Not at all 5. Poor appetite or overeating: Not at all 6. Feeling bad about yourself - or that you are a failure or have let yourself or your family down: Not at all 7. Trouble concentrating on things, such as reading the newspaper or watching television: Not at all 8. Moving or speaking so slowly that other people could have noticed? - Or the opposite - being so fidgety or restless that you have been moving around a lot more than usual: not at all 9. Thoughts that you would be better off or of hurting yourself in some way: Not at all Total score: 0 If you checked off any problems, how difficult have these problems made it for you to do your work, take care of things at home, or get along with other people?: not difficult at all Source: Developed by Drs. Maurisio Carreno, Merissa Renee, Rubens Sauer and colleagues, with an educational david from [employer]. Depression screen completed yes Social History Living Situation History Marital Status: Life Partner Lives With: Family Housing: House Tobacco History Smoking Status: Never smoker Second Hand Smoke Exposure: No Alcohol History Alcohol Intake: Never Domestic Abuse History Do You Feel Safe at Home: Yes History of Present Illness HPI Narrative 29-year-old 7 para 6 for Nexplanon insert. Patient had a vaginal December 07, 2024. She is 8 weeks today. She has not had sex. She is bottlefeeding. She had. That started January 23. And she is due for her Pap in a year. Denies social habits. Denies surgery. History of lupus. Patient has an appointment at [facility] work with her provider. 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 She has used Nexplanon before with no problems. Review of Systems Review of Systems Systems Reviewed: All systems reviewed, normal except as documented Exam General Limitations: no limitations General Appearance: alert, in no apparent distress, comfortable, cooperative, healthy appearing, well developed and well groomed ENT ENT exam: Present normal exam, normal oropharynx and mucous membranes moist Neck Neck exam: Present normal inspection, full ROM and trachea midline Chest Chest inspection: Present normal inspection and symmetric chest wall rise Resp Respiratory exam: Present normal lung sounds bilaterally Results Objective Laboratory: neg preg test Office Procedures OBC Clinic LOC & Office Proc's Nursing/Assessment Patient Status: Established Patient OB Clinic Nursing Assessment: Medication Reconciliation, Update PMH in EMR and Vital Signs OB Clinic Coordination of Care: Complex Care and Chronic Disease 1-5, Education Complex Pt/Fam, Consent,records obtained, informed consent, Lab and Imaging orders, Results/Orders obtained and Staff clarify orders Miscellaneous Interventions: Blood/Urine Collection Established Patient Charge Established Patient Point Assignment: 140 Established Patient Point Charge: EP Level 4 (120-155) In Clinic Bedside tests/procedures Bedside HCG: Yes In Clinic Procedures Minor Surgical Procedure: Yes Nexplanon insert only: Yes (LOT:[id number] EXP:2026-10 [facility]:[id number]) Results Urine HCG Urine HCG Negative Last Edit by Cassy Ruiz MA on 01/28/25 10:1 0 Assessment & Plan Diagnosis / Problem List (1) Nexplanon insertion: Status: Acute Plan Consent for Nexplanon insert. I reviewed method side effects and danger signs symptoms and effectiveness. Discussed insertion procedure. Dry for 3 days. Condoms for 2 weeks. And reviewed wound care with patient and signs symptoms of infection. Patient return in a year for Pap Additional Plan Follow Up: 1 Year (pap) INCIDENT MANAGER: BC insert/removal Procedure Notes Consent obtained: yes-verbal and yes-written Pre-op diagnosis general: nexplanon insert Post-op diagnosis procedure note: Same Implant placed: Nexplanon IUD Lot and Exp: Lot#: [id number] Expiration date: 10/31 Procedure Notes:: test negative. Timeout per protocol. Betadine cleanse of insertion site. 3 cc lidocaine 1% injected into insert site. Nexplanon capsule inserted with applicator. Small amount of bleeding that stopped with pressure. Patient and provider both palpated the presence of Nexplanon capsule in the arm. Band- Aid placed and pressure dressing placed. Patient tolerated procedure well
== END 2025-01-28 10:28 | disposition home or self-care (01) ==
LOC: HODSOBC 09:40
PROVIDERS: Supervising Provider Advanced Practice Midwife; Visit Provider Advanced Practice Midwife
DX: Z30.017 Encounter for initial prescription of implantable subdermal contraceptive (principal); Z32.02 Encounter for pregnancy test, result negative
CPT/HCPCS: 11981; 81025; 96372; 99214; J3490; J7301; G0463